=== PATIENT | female | born 1985 | race Caucasian/White ===

== ENCOUNTER 2016-09-25 21:59 | Inpatient (IN) ==
--- NOTE | 2016-09-25 22:23 | Emergency Department Note ---
Disposition Clinical Impression: Chest pain of unknown etiology, Tachyarrhythmia, Unstable angina Chest pain Qualifiers: Chest pain type: other chest pain Qualified Code(s): R07.89 - Other chest pain Disposition: Admitted As Inpatient Condition: Fair Time of Disposition: 02:56 Chest Pain HPI - General Chief Complaint: ED Chest Pain Stated Complaint: chest pain Source: patient Limitations: no limitations Vital Signs Reviewed: Yes Nursing Notes Reviewed: Yes - History of Present Illness HPI Narrative: History of present illness: Patient is a 31-year-old female who complains of acute onset of chest pain 2 hours ago sharp with pressure sided chest with radiation across the right side of chest wall. Patient states taking deep breaths makes the pain better, exertion makes the pain worse. Patient has shortness of breath after walking 30 feet. Patient denies taking anything for pain Patient states she has had periods of chest pressure before and had an echocardiogram done 6 years ago. Patient has no history of AR, thought on blood thinners. 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 Severity scale (1-10): 6 - Related Data Home Medications Medication Instructions Recorded Confirmed Norethindrone-E.estradiol-Iron [Lo 1 tab PO DAILY 03/17/16 08/11/16 Loestrin Fe 1-10 Tablet] Bifidobacterium Infantis [Align] 4 mg PO DAILY 08/11/16 08/11/16 Ginkgo Biloba [place] Extract [Ginkgo 30 mg PO DAILY 08/11/16 08/11/16 Biloba] Previous Rx's Medication Instructions Recorded OxyCODONE/APAP 10/325 [Percocet 1 each PO Q6HR PRN #26 tablet 08/11/16 10/325 MG] Allergies Allergy/AdvReac Type Severity Reaction Status Date / Time No Known Allergies Allergy Verified 09/25/16 22:11 All systems ED: reviewed and negative except as stated. Constitutional: Denies: fever, chills, weakness Eyes: Denies: vision change ENT ED: Denies: congestion Cardiovascular: Reports: chest pain, dyspnea on exertion. Denies: palpitations , syncope Respiratory: Denies: cough, dyspnea, wheezes Gastrointestinal: Denies: abdominal pain, nausea, vomiting, diarrhea, hematemesis, melena, hematochezia Genitourinary: Denies: urgency, dysuria, frequency, hematuria Musculoskeletal: Reports: back pain. 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 Absent: scleral icterus - ENT ENT exam: normal exam, normal oropharynx, mucous membranes moist - Neck Neck exam: Present: normal inspection, full ROM, trachea midline. Absent: tenderness, meningismus - Chest Chest inspection: Present: normal inspection - Respiratory Respiratory exam: Present: normal lung sounds bilaterally. Absent: respiratory distress, wheezes - Cardiovascular Cardiovascular exam: Present: normal rhythm, tachycardia - Abdominal Exam Abdominal exam: Present: soft, Non-Tender, normal bowel sounds. Absent: distention, guarding, rebound, rigidity - Extremities Exam Extremities exam: Present: normal inspection, full ROM, normal capillary refill. Absent: tenderness, pedal edema - Back Exam Back exam: Present: normal inspection, CVA tenderness (R), CVA tenderness (L) - Neurological Exam Neurological exam: Present: alert, oriented X3, CN II-XII intact - Psychiatric Psychiatric exam: Present: anxious - Skin Skin exam: Present: warm, dry Course - Reevaluation(s) Reevaluation #1: Assessment: ACS/AR, PE, aortic dissection Plan: CBC, BMP, troponin, EKG, chest x-ray. Aspirin Time: 22:33 Reevaluation #2: Patient states she is feeling a bit better. Still has chest pain 4 out of 10 same pain patterns. Patient's no longer has facial flushing. Patient is low risk for PE under Wells criteria, the patient's chest pain symptoms are concerning. Plan to do CT chest without contrast secondary to patient's elevation in creatinine and decrease in GFR to rule out PE. MrNik beta dede metoprolol for reduction of heart rate. Unsure of the cause of patient's tachycardia so chose not to administer nitroglycerin to prevent loss of preload. Time: 23:07 Reevaluation #3: Patient states that her chest is hurting again. Ordered another 0.5 of Ativan because patient is very tearful and anxious. Time: 23:49 - Consultations Consultation #1: Dr. Allison has accepted for admission 0139 hrs. tox screen ordered per request by Dr. Allison Time: 01:39 Vital Signs Temperature 98.2 F 09/25/16 22:03 Pulse Rate 115 09/25/16 22:03 Respiratory Rate 18 09/25/16 22:03 Blood Pressure 137/87 09/25/16 22:03 O2 Sat by Pulse Oximetry 97 09/25/16 22:03 Temperature 97.7 F 09/26/16 02:57 Pulse Rate 80 09/26/16 02:57 Respiratory Rate 16 09/26/16 02:57 Blood Pressure 119/67 09/26/16 02:57 O2 Sat by Pulse Oximetry 97 09/26/16 02:57 Oxygen Delivery Oxygen Delivery Room Air Chest Pain - Medical Records Medical records reviewed: Yes I reviewed the patient's medical records. - Lab Data Lab results reviewed: Yes I reviewed the patient's lab results. Lab results narrative: Short CBC 09/25/16 Range/Units 22:40 WBC 9.7 (4.3-11.1) K/mcL Hgb 15.0 (11.5-15.4) g/dL Hct 44.7 (35.3-44.9) % Plt Count 206 (140-400) K/mcL Neutrophils # 5.4 (1.6-8.9) K/mcL BMP 09/26/16 09/25/16 Range/Units 03:13 22:40 Sodium 138 140 (136-145) mEq/L Potassium 3.8 3.7 (3.5-4.5) mEq/L Chloride 108 110 H (98-109) mEq/L Carbon Dioxide 23 20 (19-29) mEq/L BUN 18 16 (7-20) mg/dL Creatinine 1.13 H 1.28 H (0.57-1.11) mg/dL Glucose 109 H 121 H (70-99) mg/dL Calcium 8.8 9.2 (8.6-10.8) mg/dL Cardiac Enzymes 09/26/16 09/25/16 Range/Units 03:13 22:40 Troponin I 0.00 0.00 (0-0.03) ng/mL Liver Function 09/26/16 Range/Units 03:13 Total Bilirubin 1.0 (0.2-1.2) mg/dL AST 50 H (5-34) Units/L ALT 32 (0-55) Units/L Alkaline Phosphatase 56 (38-126) Units/L Albumin 3.2 L (3.5-5.0) g/dL Result diagrams: 09/25/16 22:40 09/26/16 03:13 Lab Results 09/25/16 09/25/16 09/25/16 Range/Units 22:40 22:40 22:40 WBC 9.7 (4.3-11.1) K/mcL RBC 5.08 H (3.82-4.97) M/mcL Hgb 15.0 (11.5-15.4) g/dL Hct 44.7 (35.3-44.9) % MCV 88.0 (83.0-100.0) fL MCH 29.5 (28.0-33.3) pg MCHC 33.6 (31.6-35.5) g/dL RDW 14.2 (11.5-14.5) % Plt Count 206 (140-400) K/mcL MPV 11.0 (9.4-12.4) fL Immature Gran % 0.4 (0-4) % Seg Neutrophils % 55.4 % Lymphocytes % 36.5 % Monocytes % 6.5 % Eosinophils % 0.8 % Basophils % 0.4 % Neutrophils # 5.4 (1.6-8.9) K/mcL Lymphocytes # 3.5 (0.6-4.6) K/mcL Monocytes # 0.6 (0.0-1.3) K/mcL Eosinophils # 0.1 (0.0-0.6) K/mcL Basophils # 0.0 (0.0-0.2) K/mcL D-Dimer (0-500) ng/mLFEU Sodium 140 (136-145) mEq/L Potassium 3.7 (3.5-4.5) mEq/L Chloride 110 H (98-109) mEq/L Carbon Dioxide 20 (19-29) mEq/L BUN 16 (7-20) mg/dL Creatinine 1.28 H (0.57-1.11) mg/dL Est GFR ( Amer) 59 L (> 60) Est GFR (Non-Af Amer) 49 L (> 60) BUN/Creatinine Ratio 13 (6-26) Glucose 121 H (70-99) mg/dL Calculated Osmolality 292 (280-300) Calcium 9.2 (8.6-10.8) mg/dL Troponin I 0.00 (0-0.03) ng/mL 09/25/16 Range/Units 22:40 WBC (4.3-11.1) K/mcL RBC (3.82-4.97) M/mcL Hgb (11.5-15.4) g/dL Hct (35.3-44.9) % MCV (83.0-100.0) fL MCH (28.0-33.3) pg MCHC (31.6-35.5) g/dL RDW (11.5-14.5) % Plt Count (140-400) K/mcL MPV (9.4-12.4) fL Immature Gran % (0-4) % Seg Neutrophils % % Lymphocytes % % Monocytes % % Eosinophils % % Basophils % % Neutrophils # (1.6-8.9) K/mcL Lymphocytes # (0.6-4.6) K/mcL Monocytes # (0.0-1.3) K/mcL Eosinophils # (0.0-0.6) K/mcL Basophils # (0.0-0.2) K/mcL D-Dimer 273 (0-500) ng/mLFEU Sodium (136-145) mEq/L Potassium (3.5-4.5) mEq/L Chloride (98-109) mEq/L Carbon Dioxide (19-29) mEq/L BUN (7-20) mg/dL Creatinine (0.57-1.11) mg/dL Est GFR ( Amer) (> 60) Est GFR (Non-Af Amer) (> 60) BUN/Creatinine Ratio (6-26) Glucose (70-99) mg/dL Calculated Osmolality (280-300) Calcium (8.6-10.8) mg/dL Troponin I (0-0.03) ng/mL - Radiology Data Radiology results reviewed: Yes I reviewed the patient's radiology results. Chest X-Ray 09/25/16 22:30 IMPRESSION: No acute process. D/ / Devon Cabral MD / Devon Cabral MD Interpreting Provider: Devon Cabral MD Chest CT 09/26/16 23:51 IMPRESSION: No acute process identified. D/ / Stephen Mcfarland MD / Stephen Mcfarland MD Interpreting Provider: Stephen Mcfarland MD - EKG Data EKG attestation: Yes I reviewed and interpreted this EKG. EKG results narrative: EKG taken at 09/25/2016 at 2207 hrs. shows a sinus tachycardia with occasional premature beat and rate of 106 bpm with no acute ST elevations or depressions in leads and QRS widening or QT prolongation no S1 QT T3. Previous EKG taken shows a sinus tachycardia at a rate of 108 bpm with occasional PACs and no acute ST elevations or depressions and a leads Heart Score - Score History: Slightly Suspicious EKG: Non Specific repolarisation Disturbance Age: Less than 45 Risk Factors: No risk factors known Troponin: Less than normal limit HEART Score Total: 1 Critical Care Time Critical Care Time: Yes Total Critical Care Time: 40 Attestation: Critical care performed: Time is exclusive of separately billable procedures. Time includes: direct patient care, patient reassessment, coordination of patient care, interpretation of data (laboratory data, radiology data, and respiratory data), review of patient's medical records, medical consultation and documentation of patient care. Procedures included in critical care time: Procedures excluded from critical care time: Attestation Statement - Attestation Attestation: I, Venkata Luna MD, personally performed a history and physical exam of the patient and discussed their management with the resident. I reviewed the resident's note and agree with the documented findings, medical decision making , and plan of care. 31-year-old female presents to the emergency department with a complaint of mid lower chest pain which started about 2 hours prior to arrival. The pain is also associated with palpitations. Patient states that she has had the palpitations in the past but has never had chest pain with it. Some shortness of breath. No diaphoresis. Some nausea but no vomiting. Here in the emergency department on the monitor the patient is in a sinus rhythm and sinus tachycardia with frequent intermittent runs of very irregular and tachycardic rhythm which appears to be atrial fibrillation. On examination patient is a well-developed obese female in no acute distress. She is alert and oriented 3. There is no cyanosis or diaphoresis. She does appear anxious. Chest is nontender to palpation. Heart is irregularly irregular and tachycardic. Abdomen is soft and nontender with normal bowel sounds. Labs reviewed. Chest x-ray negative. EKG shows sinus tachycardia with frequent PACs versus intermittent atrial fibrillation. CT of the chest without contrast was also obtained and showed no acute abnormality. The hospitalist, Dr. Allison, was consulted and accepted admission of the patient.
[2016-09-25] MEDS ORDERED: Nitroglycerin 0.4 MG TAB.SUBL SL PRN (22:32)
[2016-09-25] MEDS ORDERED: Aspirin 81 MG TAB.CHEW PO ONE (22:32)
[2016-09-25] MEDS ORDERED: *HR* LORazepam 2 MG/ML VIAL IVP ONE (22:33)
[2016-09-25 22:51] LABS: Basophils % 0.4 %; Eosinophils # 0.1 K/mcL (0.0-0.6); Eosinophils % 0.8 %; Hematocrit 44.7 % (35.3-44.9); Immature Granulocytes % 0.4 % (0-4); Lymphocytes # 3.5 K/mcL (0.6-4.6); Lymphocytes % 36.5 %; Mean Corpuscular HGB Conc 33.6 g/dL (31.6-35.5); Mean Corpuscular Hemoglobin 29.5 pg (28.0-33.3); Monocytes # 0.6 K/mcL (0.0-1.3); Monocytes % 6.5 %; Neutrophils # 5.4 K/mcL (1.6-8.9); Platelet Count 206 K/mcL (140-400); Red Blood Count 5.08 M/mcL (3.82-4.97); Red Cell Distribution Width 14.2 % (11.5-14.5); Segmented Neutrophils % 55.4 %
[2016-09-25 23:06] LABS: Calcium 9.2 mg/dL (8.6-10.8); Potassium 3.7 mEq/L (3.5-4.5)
[2016-09-25] MEDS ORDERED: *HR* Metoprolol 5 MG/5 ML VIAL IVP ONE (23:54)
[2016-09-25] MEDS ORDERED: *HR* HYDROmorphone 2 MG/ML SYRINGE IV ONE (23:54)
[2016-09-26] MEDS ORDERED: Ondansetron 4 MG/2 ML VIAL IV ONE (00:39)
[2016-09-26] MEDS ORDERED: *HR* LORazepam 2 MG/ML VIAL IVP ONE (01:19)
[2016-09-26] MEDS ORDERED: Pantoprazole 40 MG VIAL IVP STA (02:05)
[2016-09-26] MEDS ORDERED: *HR* Promethazine 25 MG/ML VIAL IVP PRN (02:05)
[2016-09-26] MEDS ORDERED: Naloxone 0.4 MG/ML INJ IVP PRN (02:05)
[2016-09-26] MEDS ORDERED: *HR* OxyCODONE Immed Rel 5 MG TABLET PO PRN (02:05)
[2016-09-26] MEDS ORDERED: *HR* Metoprolol 5 MG/5 ML VIAL IVP PRN (02:05)
[2016-09-26] MEDS ORDERED: Acetaminophen 325 MG TABLET PO PRN (02:05)
[2016-09-26] MEDS ORDERED: Albuterol 2.5 MG/3 ML NEBULIZER IH PRN (02:05)
[2016-09-26] MEDS ORDERED: Nitroglycerin 0.4 MG TAB.SUBL SL PRN (02:05)
[2016-09-26] MEDS ORDERED: Mag Hydrox/Al Hydrox/Simeth 30 ML UDC PO PRN (02:05)
[2016-09-26] MEDS ORDERED: 0.9 % Sodium Chloride 500 ML ONE (02:07)
[2016-09-26] MEDS ORDERED: 0.9 % Sodium Chloride 1,000 ML IVC SCH (02:15)
--- NOTE | 2016-09-26 02:25 | Internal Med History&Physical ---
Date of Encounter: 09/26/16 Time of Encounter: 02:00 Assessment and Plan (1) Chest pain, rule out acute myocardial infarction Current visit: Yes Status: Acute . (2) Chest pain with low risk of acute coronary syndrome Current visit: Yes Status: Acute . (3) Acute chest wall pain Current visit: Yes Status: Acute . (4) Morbid obesity with BMI of 40.0-44.9, adult Current visit: Yes Status: Chronic . (5) Nicotine dependence with nicotine-induced disorder Current visit: Yes Status: Chronic . Qualifiers: Nicotine product type: cigarettes Qualified Code(s): F17.219 - Nicotine dependence, cigarettes, with unspecified nicotine-induced disorders (6) Nephrocalcinosis Current visit: Yes Status: Chronic . (7) CKD (chronic kidney disease) stage 3, GFR 30-59 ml/min Current visit: Yes Status: Chronic . (8) PCOS (polycystic ovarian syndrome) Current visit: Yes Status: Chronic . (9) Medullary cystic kidney disease Current visit: Yes Status: Chronic . (10) Anxiety as acute reaction to gross stress Current visit: Yes Status: Acute . (11) Anxiety associated with depression Current visit: Yes Status: Chronic . (12) Costochondritis Current visit: Yes Status: Acute . (13) GERD (gastroesophageal reflux disease) Current visit: Yes Status: Acute . Qualifiers: Esophagitis presence: esophagitis presence not specified Qualified Code(s) : K21.9 - Gastro-esophageal reflux disease without esophagitis (14) Tachyarrhythmia Current visit: Yes Status: Acute . Internal Medicine - H&P: HPI Chief complaint: Chest pain. Admitted From: Emergency Dept Plans for Post Hospital Care: Home History of present illness: Ms. Caballero is a 31 year old female with history significant for medullary sponge kidney/nephrocalcinosis/RTA/CKD III, nephrolithiasis, hypertension, asthma, DDD/DJD lumbar spine/chr MSK pain, polycystic ovarian syndrome, depression/anxiety, morbid obesity, nicotine dependency. The patient was admitted to [facility] via the emergency department which she presents with complaints of acute onset of left-sided chest pain with difficulty breathing again approximately 2 hours prior to presentation. Described this pain as sharp and pressure-like. This was rated at 6/10 severity. Radiation across the right side of chest wall was noted. Stated that taking a deep breath seemed to lessen the pain. Exertion seems to increase the pain. Dyspnea with exertion was noted after walking just 30 feet. She denies any fevers chills sweats upper or lower respiratory complaints of cough and congestion audible wheezing. Denied abdominal pain and flank pain. Acknowledged chronic back pain. Acknowledged increased anxiety and worry. Tearful while in the emergency department. Anxious. Findings in the ED: Vital signs stable. Resting tachycardia at 115. Regular rate and rhythm. WBC 9.7. Hemoglobin 15 platelet count 206,000. Differential normal. Metabolic panel normal except chloride 110. Creatinine 1.28. GFR 49. Glucose 121. Osmolality 292. Troponin 0.00. CT of the chest without contrast demonstrated no acute cardiopulmonary process. Densely calcified mediastinal lymph nodes consistent with healed granulomatous disease. Airways patent. No acute airspace disease. Evidence of medullary nephrocalcinosis noted in the upper abdomen with cyst in the upper pole of the left kidney and no acute findings visualized. Soft tissues showed no acute findings. Chest x-ray demonstrated no acute or active cardiopulmonary process. EKG showed sinus tachycardia at 106 bpm. Occasional premature atrial contraction. No acute ischemic changes. Preliminary findings suggest typical and mostly atypical features for ACS/UA. Patient presents at low risk for major acute coronary event. Most significant risk factors include hypertension, obesity, tobacco use disorder. Family history is negative for atherosclerotic cardiovascular disease. The patient does present a significant presentation of anxiety and underlying depression. She acknowledges some increased stressors in the family setting. Examination does reveal reproducibility of chest wall pain and history does support frequent clearing of 30+ pound child on that left side. The tachycardia however is of special interest that often times is associated with general sensation of flushing and lightheadedness and near syncope. She has experienced tachycardia going back several years but more frequent/significant within the last year. This is never been formally evaluated. As she may have an underlying history of glucose intolerance or yet to be defined diabetes mellitus the tachycardia may relate to POT syndrome (postural orthostatic tachycardia syndrome). ED transition to the inpatient status on a IV Cardizem drip initiated for rate control. She also endorses the possibility of obstructive sleep apnea and which show numerous kidney indicators are positive. She also has gastroesophageal reflux with symptoms of esophagitis experienced lately. These issues have been reviewed or addressed in the past. Workup and treatments will proceed comprehensively. The patient was visited and interviewed and examined. Cumulative laboratory and radiographic database was reviewed and considered. Consultative opinions will be sought as clinical circumstances justify. Initial consultative opinion has been requested of cardiology. Plan of care has been discussed. Questions addressed. Hospital course will be dependent upon clinical findings, treatment response and potential consultative interventions. Given the patient's presenting concerns, past medical history, clinical findings and symptoms, she is admitted at this time to undergo evaluation and disposition. Orders were written as per the computerized physician cancer genetics assistant. Condition is serious. Prognosis is guarded. CODE STATUS is full. Past Med Surg Social Fam HX - Past Medical History Source: old records reviewed Medical history: arthritis, asthma, cardiomyopathy (2011 echocardiogram demonstrated mild concentric LVH with normal systolic function. LVEF 50-55%.), GERD, GI bleed, hypertension, kidney stones, renal disease (Medullary sponge/ cystic kidney disease. CKD III/nephrocalcinosis.), other (Restless leg syndrome. Irritable bowel syndrome.) Psychiatric history: anxiety, depression, other - Past Surgical History Surgical History: ( 2. D&C.), cholecystectomy, ureteral stent (Multiple ureteral stents. Nephrostomy tube placement.), other ( Colonoscopy.), bariatric surgery - Social History Smoking Status: Current every day smoker Packs per day: 1ppd x10yrs Smokeless Tobacco Status: No Alcohol use: occasionally Drug use: marijuana, other Occupational status: unemployed Current living situation: Home, With Family Activity Level: Independent ambulation, Mostly sedentary Recent Out of Country Travel Within the Last 8 Weeks: No Exposure or Possible Exposure to Illness During Travel: No - Family History Mother Living Status: Still Living Hx Family Cardiac Disorders: Yes (Hypertension) Hx Family Genitourinary Disorders: Yes (Nephrolithiasis) Hx Family Endocrine Disorder: Yes (Diabetes) Hx Family Neuromuscular Disorders: Yes (Multiple sclerosis) Father Living Status: Still Living Hx Family Cardiac Disorders: Yes (Hypertension) Hx Family Endocrine Disorder: Yes (Thyroid disorder; diabetes) Internal Medicine - H&P: Meds Norethindrone-E.estradiol-Iron [Lo Loestrin Fe 1-10 Tablet] 1 tab PO DAILY 03/17 [History] Bifidobacterium Infantis [Align] 4 mg PO DAILY 08/11/16 [History] Ginkgo Biloba [place] Extract [Ginkgo Biloba] 30 mg PO DAILY 02/28/17 [History] OxyCODONE/APAP 10/325 [Percocet 10/325 MG] 1 each PO Q6HR PRN #26 tablet [Rx] Allergies No Known Allergies Allergy (Verified 09/25/16 22:11) All Systems PM: A 10-system review of systems was performed and is negative for pertinent findings except as documented above in the HPI. - Constitutional Constitutional: as per HPI, excessive sweating, fatigue, malaise, other, no chills, no fever(s), no night sweats - EENT Eyes: as per HPI, no change in vision, no discharge, no pain, no photophobia Ears: as per HPI, no ear discharge, no ear pain, no tinnitus Nose, mouth and throat: as per HPI, no dysphagia, no nasal discharge, no neck pain, no sore throat - Cardiovascular Cardiovascular ROS IM: chest pain, dyspnea, lightheadedness, palpitations, other , no diaphoresis, no edema, no orthopnea, no syncope - Respiratory Respiratory: as per HPI, snoring, other, no cough, no dyspnea, no wheezing, no excessive phlegm production - Gastrointestinal Gastrointestinal: as per HPI, dyspepsia, heartburn, other, no abdominal pain, no coffee ground emesis, no diarrhea, no dysphagia, no hematemesis, no hematochezia, no melena, no nausea, no vomiting - Genitourinary Genitourinary: as per HPI, no change in urinary stream, no dysuria, no flank pain, no hematuria Menstruation: as per HPI, other - Musculoskeletal Musculoskeletal ROS IM: as per HPI, muscle cramps, myalgias, neck pain, stiffness, other, no numbness, no tingling - Integumentary Integumentary IM: as per HPI, no rash, no unusual bruising - Neurological Neurological ROS: as per HPI, headache(s), restless legs, other, no confusion, no convulsions, no focal weakness, no numbness, no tingling, no tremor(s) - Psychiatric Psychiatric: as per HPI, abnormal sleep pattern, anxiety, depression, difficulty concentrating, other - Endocrine Endocrine IM: as per HPI, fatigue, other - Hematologic/Lymphatic Hematologic/Lymphatic: as per HPI, no easy bruising - Allergic/Immunologic Allergic/Immunologic: as per HPI - Constitutional Vitals: Temp Pulse Resp BP Pulse Ox 98.2 F 112 20 103/76 98 09/25/16 22:03 09/26/16 00:50 09/26/16 00:50 09/26/16 00:50 09/26/16 00:50 Vital Signs Temp Pulse Resp BP Pulse Ox 09/26/16 00:50 112 20 103/76 98 09/25/16 23:40 105 18 121/73 98 09/25/16 22:03 98.2 F 115 18 137/87 97 Intake and Output 09/25/16 09/25/16 09/26/16 15:59 23:59 07:59 Other: Weight 115.666 kg General appearance: Present: cooperative, mild distress, A&O X 3, morbidly obese , pleasant, answers questions appropriately - Head Head exam: Present: atraumatic, normal inspection, normocephalic - Eye Eye exam: Present: EOMI, PERRL, conjuntiva pink, sclera anicteric Pupils: Present: normal accommodation, PERRL - ENT ENT exam: Present: mucous membranes moist, normal external ear exam, normal oropharynx - Neck Neck exam general surgery: Present: full ROM, tenderness, supple, trachea midline. Absent: lymphadenopathy, nuchal rigidity - Respiratory Respiratory exam: Present: chest wall tenderness, decreased breath sounds, CTAB. Absent: accessory muscle use, rales, rhonchi, stridor, wheezes - Cardiovascular Cardiovascular exam: Present: distant heart sounds, irregular rhythm (Frequent PACs.), RRR, +S1, +S2, tachycardia. Absent: diastolic murmur, gallop, rubs, systolic murmur - GI/Abdominal GI/Abdominal exam: Present: normal bowel sounds, soft, no peritoneal signs. Absent: distended, tenderness - Extremities Exam Extremities exam: Present: full ROM, normal capillary refill, warm, radial pulses palpable and symetrical. Absent: calf tenderness, cyanotic, pedal edema - Neurological Exam Neurological exam: Present: alert, CN II-XII intact, oriented X3, no focal deficits, strengths equal and symetr throughout. Absent: pronater drift, facial droop, speech deficit - Psychiatric Psychiatric exam: Present: anxious, depressed - Skin Skin exam: Present: dry, intact, warm. Absent: rash, urticaria, vesicles Internal Med - H&P Results - Labs CBC & Chem 7: 09/25/16 22:40 09/26/16 03:13 Labs: Short CBC 09/25/16 Range/Units 22:40 WBC 9.7 (4.3-11.1) K/mcL Hgb 15.0 (11.5-15.4) g/dL Hct 44.7 (35.3-44.9) % Plt Count 206 (140-400) K/mcL Neutrophils # 5.4 (1.6-8.9) K/mcL BMP 09/25/16 Range/Units 22:40 Sodium 140 (136-145) mEq/L Potassium 3.7 (3.5-4.5) mEq/L Chloride 110 H (98-109) mEq/L Carbon Dioxide 20 (19-29) mEq/L BUN 16 (7-20) mg/dL Creatinine 1.28 H (0.57-1.11) mg/dL Glucose 121 H (70-99) mg/dL Calcium 9.2 (8.6-10.8) mg/dL Cardiac Enzymes 09/25/16 Range/Units 22:40 Troponin I 0.00 (0-0.03) ng/mL Abnormal lab results RBC 5.08 M/mcL (3.82-4.97) H 09/25/16 22:40 Chloride 110 mEq/L (98-109) H 09/25/16 22:40 Creatinine 1.28 mg/dL (0.57-1.11) H 09/25/16 22:40 Est GFR ( Amer) 59 (> 60) L 09/25/16 22:40 Est GFR (Non-Af Amer) 49 (> 60) L 09/25/16 22:40 Glucose 121 mg/dL (70-99) H 09/25/16 22:40 Laboratory Results WBC 9.7 K/mcL (4.3-11.1) 09/25/16 22:40 RBC 5.08 M/mcL (3.82-4.97) H 09/25/16 22:40 Hgb 15.0 g/dL (11.5-15.4) 09/25/16 22:40 Hct 44.7 % (35.3-44.9) 09/25/16 22:40 MCV 88.0 fL (83.0-100.0) 09/25/16 22:40 MCH 29.5 pg (28.0-33.3) 09/25/16 22:40 MCHC 33.6 g/dL (31.6-35.5) 09/25/16 22:40 RDW 14.2 % (11.5-14.5) 09/25/16 22:40 Plt Count 206 K/mcL (140-400) 09/25/16 22:40 MPV 11.0 fL (9.4-12.4) 09/25/16 22:40 Immature Gran % 0.4 % (0-4) 09/25/16 22:40 Seg Neutrophils % 55.4 % 09/25/16 22:40 Lymphocytes % 36.5 % 09/25/16 22:40 Monocytes % 6.5 % 09/25/16 22:40 Eosinophils % 0.8 % 09/25/16:40 Basophils % 0.4 % 09/25/16 22:40 Neutrophils # 5.4 K/mcL (1.6-8.9) 09/25/16 22:40 Lymphocytes # 3.5 K/mcL (0.6-4.6) 09/25/16 22:40 Monocytes # 0.6 K/mcL (0.0-1.3) 09/25/16 22:40 Eosinophils # 0.1 K/mcL (0.0-0.6) 09/25/16 22:40 Basophils # 0.0 K/mcL (0.0-0.2) 09/25/16 22:40 D-Dimer 273 ng/mLFEU (0-500) 09/25/16 22:40 Sodium 140 mEq/L (136-145) 09/25/16 22:40 Potassium 3.7 mEq/L (3.5-4.5) 09/25/16 22:40 Chloride 110 mEq/L (98-109) H 09/25/16 22:40 Carbon Dioxide 20 mEq/L (19-29) 09/25/16 22:40 BUN 16 mg/dL (7-20) 09/25/16 22:40 Creatinine 1.28 mg/dL (0.57-1.11) H 09/25/16 22:40 Est GFR ( Amer) 59 (> 60) L 09/25/16 22:40 Est GFR (Non-Af Amer) 49 (> 60) L 09/25/16 22:40 BUN/Creatinine Ratio 13 (6-26) 09/25/16 22:40 Glucose 121 mg/dL (70-99) H 09/25/16 22:40 Calculated Osmolality 292 (280-300) 09/25/16 22:40 Calcium 9.2 mg/dL (8.6-10.8) 09/25/16 22:40 Troponin I 0.00 ng/mL (0-0.03) 09/25/16 22:40 Impressions Chest X-Ray 09/25/16 22:30 IMPRESSION: No acute process. D/ / Devon Cabral MD / Devon Cabral MD Interpreting Provider: Devon Cabral MD Chest CT 09/26/16 23:51 IMPRESSION: No acute process identified. D/ / Stephen Mcfarland MD / Stephen Mcfarlnad MD Interpreting Provider: Stephen Mcfarland MD - Impressions ITS Impressions Chest CT 09/26/16 23:51 IMPRESSION: No acute process identified. D/ / Stephen Mcfarland MD / Stephen Mcfarland MD Interpreting Provider: Stephen Mcfarland MD
[2016-09-26 03:35] LABS: Prothrombin Time 10.8 Seconds (9.4-12.1)
[2016-09-26 03:37] LABS: Activated Partial Thrombo Time 33.5 Seconds (26.0-36.0); Hemoglobin A1C 5.3 %
[2016-09-26 03:43] LABS: Alanine Aminotransferase 32 Units/L (0-55); Albumin 3.2 g/dL (3.5-5.0); Alkaline Phosphatase 56 Units/L (38-126); Aspartate Amino Transferase 50 Units/L (5-34); BUN/Creatinine Ratio 16 (6-26); Blood Urea Nitrogen 18 mg/dL (7-20); Calcium 8.8 mg/dL (8.6-10.8); Carbon Dioxide 23 mEq/L (19-29); Chloride 108 mEq/L (98-109); Chol/HDL Ratio 5.6 (0-4.9); Cholesterol 146 mg/dL (< 200); Globulin 3.1 g/dL (2.4-3.5); Glucose 109 mg/dL (70-99); HDL Cholesterol 26 mg/dL (40-59); LDL Cholesterol,Calculated 52 mg/dL (0-99); Magnesium 1.6 mg/dL (1.6-2.6); Osmolality,Calculated 288 (280-300); Phosphorous 3.4 mg/dL (2.3-4.7); Potassium 3.8 mEq/L (3.5-4.5); Sodium 138 mEq/L (136-145); Total Protein 6.3 g/dL (6.0-8.3); Triglycerides 338 mg/dL (< 150); eGFR For African Americans > 60 (> 60); eGFR For Non-African Americans 56 (> 60)
[2016-09-26 03:53] LABS: Ionized Calcium 1.21 mmol/L (1.15-1.35)
[2016-09-26] MEDS ORDERED: *HR* LORazepam 0.5 MG TABLET PO PRN (04:03)
[2016-09-26 04:04] LABS: Thyroid Stimulating Hormone 2.325 mcIU/mL (0.350-4.840)
[2016-09-26] MEDS ORDERED: Calcium Gluconate 1,000 MG in D5% in Water 100 ML IVPB ONE (04:05)
[2016-09-26] MEDS ORDERED: 0.9 % Sodium Chloride 500 ML IVC ONE (04:05)
[2016-09-26 04:10] LABS: C-Reactive Protein 5 mg/L (Less than 5)
[2016-09-26] MEDS: *HR* Morphine 2 MG/ML SYRINGE IVP PRN ×2 (04:43→22:13)
[2016-09-26] MEDS: Regadenoson 0.4 MG/5 ML SYRINGE IVP ONE (08:00)
[2016-09-26] MEDS: Nicotine 21 MG PATCH.TD24 TD SCH (10:32)
[2016-09-26] MEDS: Famotidine 20 MG TABLET PO SCH ×2 (10:33→20:50)
[2016-09-26] MEDS: Aspirin 81 MG TAB.CHEW PO SCH (10:33)
[2016-09-26] MEDS: Sucralfate 1 GM TABLET PO SCH ×2 (10:33→15:46)
--- NOTE | 2016-09-26 12:24 | ECHO - Doppler Report ---
Echocardiogram Name: Flor Caballero Date of Study: 09/26/2016 Date: 1985 Ht: 65.0 in Medical Record#: [id number] Age: 31 Wt: 255.0 lb Gender: Female BSA: 2.19 Order #: [id number] Location: [facility] Room #: 2NE31 Reading Physician: Xander Linder MD, [facility] Clip On Sunglasses Inspector: MORGAN CardenasT, [facility] Ordering Physician: Bon Allison MD Primary Physician: Bethany May DO Indications: Chest pain, ACS Impressions: Normal LV systolic function, LVEF 55-60%. Normal left ventricular diastolic function. Normal right ventricular size and function. No significant valvular dysfunction. Left Ventricular Wall Motion: Rest Echo Findings All wall segments showed normal motion. Findings: Study Quality * Technically adequate exam. ECG Findings * Normal sinus rhythm. Left Ventricle * Normal LV systolic function, LVEF 55-60%. * Normal LV chamber size and wall thickness. * Normal left ventricular diastolic function. Right Ventricle * Normal right ventricular size and function. Left Atrium * Normal left atrial size. Right Atrium * Normal right atrial size. Aorta * Normally sized aortic root. Pericardium * There is no pericardial effusion present. IVC * Normal IVC dimensions and inspiratory collapse. Aortic Valve * Aortic valve not well visualized. * No aortic stenosis. * No aortic regurgitation. Mitral Valve * Normal mitral valve structure. * No mitral stenosis. * Trace mitral regurgitation. Tricuspid Valve * Normal tricuspid valve structure. * No tricuspid stenosis. * Trace tricuspid regurgitation. * Unable to estimate RVSP due to lack of TR jet. Pulmonic Valve * Pulmonic valve not well visualized. * No pulmonic stenosis. * No pulmonic regurgitation. History History of Smoking Years 12 Packs 1 Family History of CAD 10/16/2011 a Previous Echo was performed. Measurements: BP: 106/ 68 2D Normal Values RVIDd: 3.68 cm IVSd: 1.22 cm 0.6 - 1.0 cm LVIDd: 4.98 cm 3.7 - 5.6 cm LVPWd: 1.25 cm 0.6 - 1.1 cm LVIDs: 3.37 cm 1.5 - 3.6 cm AO: 3.30 cm < 4.0 cm %FS: 32.30 cm >25 % LA volume: 60.7 Mitral Valve Peak E:.77 m/sec Peak A:.68 m/sec E/A Ratio:1.1 Updated by Xander Linder MD, [facility] on 09/26/2016 12:19:58 PM electronically signed on 09/26/2016 12:20:28 PM with status of Final Wall Motion Borja: 1=Normal, 2=Hypokinesis, 3=Akinesis, 4=Dyskinesis, 5=Aneurysmal, 6=Hyperkinetic, X=Not Visualized (Blank)=Missing
--- NOTE | 2016-09-26 14:21 | Internal Med Progress Note ---
Date of Encounter: 09/26/16 Time of Encounter: 10:00 - Assessment and plan (1) DVT prophylaxis Current Visit: Yes Status: Acute Assessment and plan: Lovenox subcutaneously (2) Chest pain Current Visit: Yes Status: Acute Assessment and plan: Etiology is undetermined. - Chest x-ray negative - D-dimer negative - Echo unremarkable - 3 sets of troponin negative. - Patient had stress test, result is pending - Patient is a morbid obesity, high risk for ACS. Continue aspirin and beta dede. - Patient has anxiety, continue treatment for anxiety. Qualifiers: Chest pain type: other chest pain Qualified Code(s): R07.89 - Other chest pain; R07.8 - Other chest pain (3) Morbid obesity with BMI of 40.0-44.9, adult Current Visit: Yes Status: Chronic Assessment and plan: Neither lifestyle modification or bariatric surgery (4) CKD (chronic kidney disease) stage 3, GFR 30-59 ml/min Current Visit: Yes Status: Chronic Assessment and plan: Stable creatinine level (5) Tachyarrhythmia Current Visit: Yes Status: Acute (6) Anxiety associated with depression Current Visit: Yes Status: Chronic Assessment and plan: Continue home medications - Time Spent With Patient 25 - 35 minutes - Subjective Interval history: Patient is a 31-year-old female admitted for chest pain and palpitation. Her past medical history is significant for anxiety and depression. Patient was seen and examined. She is awake alert, oriented 3. Denies chest pain or shortness of breath when I saw her. Vital signs stable. 3 sets of troponin negative. D-dimer negative. Chest x-ray unremarkable. EKG showed sinus tachycardia with multiple APC. TSH negative. Patient had stress test today, report is pending. - Constitutional Vitals: Temp Pulse Resp BP Pulse Ox 97.7 F 77 14 113/73 94 09/26/16 11:01 09/26/16 11:01 09/26/16 11:01 09/26/16 11:01 09/26/16 11:01 General appearance: Present: cooperative, mild distress, A&O X 3, morbidly obese , pleasant, answers questions appropriately - Head Head exam: Present: atraumatic, normocephalic - Eye Eye exam: Present: PERRL, conjuntiva pink, sclera anicteric Pupils: Present: PERRL - Neck Neck exam general surgery: Present: supple, trachea midline. Absent: lymphadenopathy - Respiratory Respiratory exam: Present: CTAB. Absent: accessory muscle use, rales, rhonchi, wheezes - Cardiovascular Cardiovascular exam: Present: RRR, +S1, +S2. Absent: diastolic murmur, gallop, rubs, systolic murmur - GI/Abdominal GI/Abdominal exam: Present: normal bowel sounds, soft, no peritoneal signs. Absent: distended, tenderness - Extremities Exam Extremities exam: Present: warm, radial pulses palpable and symetrical. Absent : calf tenderness, cyanotic, pedal edema - Neurological Exam Neurological exam: Present: CN II-XII intact, oriented X3, no focal deficits. Absent: pronater drift, facial droop, speech deficit - Skin Skin exam: Present: dry, intact Internal Medicine: Result - Labs CBC & Chem 7: 09/25/16 22:40 09/26/16 03:13 Labs: BMP 09/26/16 03:13 Sodium 138 Potassium 3.8 Chloride 108 Carbon Dioxide 23 BUN 18 Creatinine 1.13 H Glucose 109 H Calcium 8.8 Cardiac Enzymes 09/26/16 Range/Units 03:13 Troponin I 0.00 (0-0.03) ng/mL Liver Function 09/26/16 Range/Units 03:13 Total Bilirubin 1.0 (0.2-1.2) mg/dL AST 50 H (5-34) Units/L ALT 32 (0-55) Units/L Alkaline Phosphatase 56 (38-126) Units/L Albumin 3.2 L (3.5-5.0) g/dL - ABG Interpretation ABG results: PT/INR, D-dimer PT 10.8 Seconds (9.4-12.1) 09/26/16 03:13 D-Dimer 273 ng/mLFEU (0-500) 09/25/16 22:40 - Impressions Impressions Chest CT 09/26/16 23:51 IMPRESSION: No acute process identified. D/ / Stephen Mcfarland MD / Stephen Mcfarland MD Interpreting Provider: Stephen Mcfarland MD Consult Discharge Plan - Plan Referrals: Unassigned,Provider [Non-Partnered Physician] -
[2016-09-26 14:49] LABS: Amphetamine Screen,Urine Negative ng/mL (Cutoff=1000); Barbiturate Screen,Urine Negative ng/mL (Cutoff=200); Benzodiazepines Screen,Urine Negative ng/mL (Cutoff=200); Cannabinoid Screen,Urine Positive ng/mL (Cutoff = 50); Cocaine Screen,Urine Negative ng/mL (Cutoff= 300); Opiate Screen,Urine Positive ng/mL (Cutoff=300); Phencyclidine Screen,Urine Negative ng/mL (Cutoff=25)
[2016-09-26] MEDS ORDERED: Magnesium Sulfate 1 GM in D5% in Water 100 ML IVPB ONE (14:53)
[2016-09-26] MEDS: FLUoxetine 20 MG CAPSULE PO SCH (15:45)
[2016-09-27 05:24] LABS: Basophils # 0.1 K/mcL (0.0-0.2); Basophils % 0.7 %; Eosinophils # 0.2 K/mcL (0.0-0.6); Eosinophils % 2.6 %; Hematocrit 41.7 % (35.3-44.9); Hemoglobin 13.8 g/dL (11.5-15.4); Immature Granulocytes % 0.3 % (0-4); Lymphocytes # 2.9 K/mcL (0.6-4.6); Lymphocytes % 41.4 %; Mean Corpuscular HGB Conc 33.1 g/dL (31.6-35.5); Mean Corpuscular Hemoglobin 30.3 pg (28.0-33.3); Mean Corpuscular Volume 91.6 fL (83.0-100.0); Mean Platelet Volume 11.7 fL (9.4-12.4); Monocytes # 0.5 K/mcL (0.0-1.3); Monocytes % 7.4 %; Neutrophils # 3.3 K/mcL (1.6-8.9); Platelet Count 189 K/mcL (140-400); Red Blood Count 4.55 M/mcL (3.82-4.97); Red Cell Distribution Width 14.4 % (11.5-14.5); Segmented Neutrophils % 47.6 %
[2016-09-27 05:33] LABS: BUN/Creatinine Ratio 17 (6-26); Blood Urea Nitrogen 17 mg/dL (7-20); Calcium 8.6 mg/dL (8.6-10.8); Carbon Dioxide 27 mEq/L (19-29); Chloride 108 mEq/L (98-109); Glucose 107 mg/dL (70-99); Magnesium 1.8 mg/dL (1.6-2.6); Osmolality,Calculated 292 (280-300); Potassium 4.1 mEq/L (3.5-4.5); Sodium 140 mEq/L (136-145); eGFR For African Americans > 60 (> 60); eGFR For Non-African Americans > 60 (> 60)
[2016-09-27] MEDS ORDERED: *HR* Heparin 5,000 UNIT/ML VIAL SQ SCH (06:00)
[2016-09-27] MEDS ORDERED: *HR* Enoxaparin 40 MG/0.4 ML SYRINGE SQ SCH (06:00)
[2016-09-27 07:52] VITALS: BP 121/82
[2016-09-27] MEDS: Aspirin 81 MG TAB.CHEW PO SCH (10:29)
[2016-09-27] MEDS: Famotidine 20 MG TABLET PO SCH (10:29)
[2016-09-27] MEDS: Sucralfate 1 GM TABLET PO SCH (10:29)
[2016-09-27] MEDS: FLUoxetine 20 MG CAPSULE PO SCH (10:29)
[2016-09-27] MEDS: Nicotine 21 MG PATCH.TD24 TD SCH (10:30)
--- NOTE | 2016-09-27 11:12 | Nuclear Medicine Stress Report ---
Regadenoson Nuclear 2 day Name: Flor Caballero Date of Study: 09/26/2016 Date: 1985 Ht: 64.0 in Medical Record#: [id number] Age: 31 Wt: 255.0 lb Gender: Female Order #: [id number] Location: [facility] Room: 2NE3 Supervising Provider: Jeovany Grimaldo CNP Reading Physician: Surinder Fermin MD, [facility] Ordering Physician: Sunny Bender DO Primary Care Physician: Same as Ordering Provider Stress Technologist: Sanjay Garcia RRT, CCT Rug Frame Mounter: Pankaj Cobos Indications: Chest Pain Impression: Perfusion imaging was negative for ischemia or infarct. Pharmacologic ECG was non diagnostic for ischemia. Patient had no chest pain with stress. No arrhythmias noted with stress. Gated EF = 67%. There is no evidence of TID. No high risk findings identified History: Hypertension Hypercholesteremia History of Smoking Stress Test Summary: Stress Test Type: Pharmacologic Regadenoson 0.4mg/5ml given IV Baseline Information: Initial Heart Rate: 81 Blood Pressure: 106/84 Stress Information: Stress Time: 4 min 00 sec Test Terminated Due to (primary): Completed Protocol Maximum Blood Pressure: 128/80 Maximum Heart Rate: 103 Percent Maximum Heart Rate Achieved: 55 METS Reached: 1 Symptoms: Nausea Nuclear Summary: SPECT myocardial perfusion imaging using Tc99m Sestamibi given intravenously was performed at rest and following cardiac stress testing. The resting images were obtained following initial dose of 33.9 mCi. Following stress an additional dose of 35.9 mCi was given at peak exercise or 30 seconds post regadenoson infusion. Medication Given: Time Medication Dose Units Route Findings: Stress Note * Resting ECG demonstrated normal sinus rhythm. * No baseline arrhythmias were noted. * Pharmacologic stress ECG is non diagnostic for ischemia due to failure to reach target heartrate. * No arrhythmias were noted during stress. * Patient had no chest pain during stress. Study Quality * Study quality is average. Gated EF % * Gated EF = 67%. Left Ventricle * The left ventricle is not dilated. NORMALS * Normal wall motion. * Normal segmental perfusion in stress. Inferior Perfusion Rest * The inferior segment shows a moderate reduction in perfusion. Inferior Perfusion Stress * The inferior segment shows a mild reduction in perfusion. TID * No evidence of transient ischemic dilatation. Updated by Surinder Fermin MD, [facility] on 09/27/2016 11:05:32 AM electronically signed on 09/27/2016 11:07:03 AM with status of Final
--- NOTE | 2016-09-27 13:41 | Discharge Summary ---
Date of Encounter: 09/27/16 Time of Encounter: 13:00 - Discharge Diagnosis (1) DVT prophylaxis Priority: Secondary Status: Acute (2) Chest pain Priority: Primary Status: Acute Qualifiers: Chest pain type: other chest pain Qualified Code(s): R07.89 - Other chest pain; R07.8 - Other chest pain (3) Morbid obesity with BMI of 40.0-44.9, adult Priority: Primary Status: Chronic (4) CKD (chronic kidney disease) stage 3, GFR 30-59 ml/min Priority: Primary Status: Chronic (5) Tachyarrhythmia Priority: Primary Status: Acute (6) Anxiety associated with depression Priority: Secondary Status: Chronic - Discharge Medications Prescriptions: Nicotine Patch [Nicoderm] 21 mg TD DAILY #14 patch.[id number] Home Medications: Norethindrone-E.estradiol-Iron [Lo Loestrin Fe 1-10 Tablet] 1 tab PO DAILY 03/17 [History] Ginkgo Biloba [place] Extract [Ginkgo Biloba] 30 mg PO DAILY 08/11/16 [History] Biotin 1 mg PO DAILY 09/26/16 [History] FLUoxetine HCl [Prozac] 20 mg PO DAILY 09/26/16 [History] Fish Oil/Dha/Epa [Fish Oil 1,200 mg Fish Oil] 1 each PO DAILY 09/26/16 [History] Nicotine Patch [Nicoderm] 21 mg TD DAILY #14 patch.td24 09/27/16 [Rx] Allergies/Adverse Reactions: Allergies No Known Allergies Allergy (Verified 09/26/16 12:43) Date of admission: 09/26/16 18:44 Primary care physician: Bethany May DO Discharging clinician: Piper Holm Anticipated date of discharge: 09/27/16 - Patient Status Disposition: Home, Self-Care Condition: Good Functional capacity at discharge: independent ambulation Overall status at discharge: patient is back to baseline - Discharge Instructions Follow Up With: Unassigned,Provider [Non-Partnered Physician] - Forms: ED Satisfaction Letter - Diet and Activity Activity: increase activity as tolerated Diet: low fat, low cholesterol, low salt diet Interval History: History of present illness: Patient is a 31-year-old female who complains of acute onset of chest pain 2 hours ago sharp with pressure sided chest with radiation across the right side of chest wall. Patient states taking deep breaths makes the pain better, exertion makes the pain worse. Patient has shortness of breath after walking 30 feet. Patient denies taking anything for pain Patient states she has had periods of chest pressure before and had an echocardiogram done 6 years ago. Hospital course: Ms. Caballero is a 31 year old female admitted for chest pain. She was placed on cardiac monitoring. 2 sets of troponin negative. Echoardiogram negative. Chest CT negative. D-dimer negative. Stress test has been done, negative for ischemia. Patient has been pain free for 2 days. Her urine toxicity test that shows a marijuana positive, which probably accounted for the chest pain or palpitation. We will discharge patient home today, I educated her stopped taking marijuana. Saw and examined the patient today. She is awake alert, denies chest pain or shortness of breath. Vitals are stable. Will discharge patient home today and follow-up with PCP as outpatient. Time spent discussing smoking cessation with patient: more than 10 minutes - Time Spent with Patient Total time spent providing and/or coordinating discharge services: Greater than 30 minutes - Constitutional Vitals: Temp Pulse Resp BP Pulse Ox 98.4 F 76 18 121/82 97 09/27/16 07:00 09/27/16 07:00 09/27/16 07:00 09/27/16 07:00 09/27/16 07:00 General appearance: Present: cooperative, mild distress, A&O X 3, morbidly obese , pleasant, answers questions appropriately - Head Head exam: Present: atraumatic, normocephalic - Eye Eye exam: Present: PERRL, conjuntiva pink, sclera anicteric Pupils: Present: PERRL - Neck Neck exam general surgery: Present: supple, trachea midline. Absent: lymphadenopathy - Respiratory Respiratory exam: Present: CTAB. Absent: accessory muscle use, rales, rhonchi, wheezes - Cardiovascular Cardiovascular exam: Present: RRR, +S1, +S2. Absent: diastolic murmur, gallop, rubs, systolic murmur - GI/Abdominal GI/Abdominal exam: Present: normal bowel sounds, soft, no peritoneal signs. Absent: distended, tenderness - Extremities Exam Extremities exam: Present: warm, radial pulses palpable and symetrical. Absent : calf tenderness, cyanotic, pedal edema - Neurological Exam Neurological exam: Present: CN II-XII intact, oriented X3, no focal deficits. Absent: pronater drift, facial droop, speech deficit - Skin Skin exam: Present: dry, intact
--- NOTE | 2016-09-28 09:00 | Electrocardiograph Report ---
[address] [address] Test Date: 2016-09-25 Pat Name: Flor Caballero Department: 104 Room: 2NE31 Gender: F Rejogger: EDDIE : 1985 Requested By: Bon Allison Order Number: [id number] Reading MD: Surinder Fermin MD Measurements Intervals [place] Rate: 106 P: 64 WY: 155 QRS: 22 QRSD: 84 T: 56 QT: 328 QTc: 390 Interpretive Statements SINUS TACHYCARDIA WITH OCCASIONAL SUPRAVENTRICULAR PREMATURE COMPLEXES LOW QRS VOLTAGE IN PRECORDIAL LEADS BASELINE ARTIFACT Electronically Signed On 09-28-2016 8:58:29 EDT by Surinder Fermin MD
--- NOTE | 2016-09-28 09:02 | Electrocardiograph Report ---
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
== END 2016-09-27 14:07 | disposition home or self-care (01) | DRG 203 ==
LOC: EMEROO 21:59 → 2NNU 21:59 → SUATTDRO 09-26 01:48 → 2NENU 09-26 01:49
PROVIDERS: ADMIT Internal Medicine; ATTEND Internal Medicine

== ENCOUNTER 2017-02-25 03:12 | Observation (INO) ==
[2017-02-25] MEDS ORDERED: *HR* HYDROmorphone (PF) 1 MG/ML SYRINGE IVP ONE (04:44)
[2017-02-25] MEDS ORDERED: Ondansetron 4 MG/2 ML VIAL IVP ONE (04:55)
[2017-02-25] MEDS ORDERED: *HR* Morphine 2 MG/ML SYRINGE IVP ONE (04:55)
[2017-02-25] MEDS ORDERED: 0.9 % Sodium Chloride 1,000 ML IV SCH (05:00)
--- NOTE | 2017-02-25 05:14 | Emergency Department Note ---
Disposition Clinical Impression: Renal stone UTI (urinary tract infection) Qualifiers: Urinary tract infection type: acute pyelonephritis Qualified Code(s): N10 - Acute pyelonephritis Disposition: Admitted As Inpatient Condition: Good Time of Disposition: 04:59 General Adult HPI - General Chief complaint: ED Back Pain/Injury Stated complaint: "I have a kidney stone" Source: patient, family Limitations: no limitations Nursing Notes Reviewed: Yes Vital Signs Reviewed: Yes - History of Present Illness HPI Narrative: 31-year-old female with past medical history of obstructive kidney stones, renal tubular acidosis, medullary sponge disease of the kidney is in the emergency department with a few history of left flank pain, hematuria, nausea. She states that this is how she feels when she has an obstructive stone. She follows Dr. Salas, a urologist who manages her stones. She has not taken anything for pain. Pain Scale: 10 - Related Data Home Medications Medication Instructions Recorded Confirmed Biotin 1 mg PO DAILY 09/26/16 01/12/17 BuPROPion SR (12 HR) [Wellbutrin 150 mg PO BID 12/29/16 01/12/17 SR] Labetalol [Trandate] 100 mg PO DAILY 12/29/16 01/12/17 Biotin 5 mg PO DAILY 01/12/17 01/12/17 Cetirizine HCl [Zyrtec] 10 mg PO DAILY 01/12/17 01/12/17 FLUoxetine HCl [Fluoxetine HCl] 40 mg PO DAILY 01/12/17 01/12/17 Fluticasone Propionate Nasal 2 spray NS DAILY 01/12/17 01/12/17 [Flonase] Garcinia Cambogia 1 tab PO DAILY 01/12/17 Norethindrone-E.estradiol-Iron [Lo 1 tab PO DAILY 01/12/17 01/12/17 Loestrin Fe 1-10 Tablet] Previous Rx's Medication Instructions Recorded HYDROcodone/Acet 5/325 mg [[place] 1 tab PO Q6H PRN #15 01/12/17 5-325 mg] Ferrous Sulfate 325 mg PO DAILY #30 tablet 01/29/17 Megestrol Acetate [Megace] 40 mg PO BID #14 tablet 01/29/17 Sulfamethoxazole/Trimeth DS 1 each PO BID #20 tablet 02/25/17 [Bactrim DS] Tamsulosin HCl [Flomax] 0.4 mg PO DAILY #7 cap.er.24h 02/25/17 Allergies Allergy/AdvReac Type Severity Reaction Status Date / Time No Known Allergies Allergy Verified 01/29/17 10:30 All systems ED: reviewed and negative except as stated. Constitutional: Denies: fever, chills Gastrointestinal: Reports: nausea. Denies: vomiting Musculoskeletal: Reports: back pain Past Medical History - Past Medical History Medical history: Reports: kidney stones Surgical history: Reports: cholecystectomy, ureteral stent, other Psychiatric history: Reports: anxiety, depression METHODS ANALYST history: Reports: no METHODS ANALYST history - Social History Smoking Status: Current every day smoker Smokeless Tobacco Status: No Alcohol use: Reports: occasionally Drug use: Reports: none Physical Exam - General Limitations: no limitations General appearance: alert - Head Head exam: atraumatic, normocephalic - Eye Eye exam: Absent: scleral icterus, conjunctival injection - ENT ENT exam: normal oropharynx, mucous membranes moist - Neck Neck exam: Present: trachea midline. Absent: tenderness, meningismus - Chest Chest inspection: Present: normal inspection, symmetric chest wall rise - Respiratory Respiratory exam: Present: normal lung sounds bilaterally. Absent: respiratory distress, wheezes, stridor - Cardiovascular Cardiovascular exam: Present: normal rhythm, tachycardia, normal heart sounds - Abdominal Exam Abdominal exam: Present: soft, tenderness (Left upper quadrant). Absent: distention, guarding, rebound Abdominal tenderness: Present: moderate - Extremities Exam Extremities exam: Present: normal capillary refill. Absent: calf tenderness - Back Exam Back exam: Present: CVA tenderness (L) - Neurological Exam Neurological exam: Present: alert, oriented X3 - Psychiatric Psychiatric exam: Present: normal affect, normal mood - Skin Skin exam: Present: warm, dry, intact Course Course Narrative: 31-year-old female with past medical history of obstructive stones presents to the emergency department with left flank pain similar to the patient has what she has an obstructive stone. At this time, I will order a CT scan of the abdomen and pelvis. We will also obtain a urinalysis, urine , CBC, CMP. Patient is currently hemodynamically stable but she is tachycardic. I will give this patient a liter of normal saline as well as 4 mg of morphine IV. - Reevaluation(s) Reevaluation #1: The patient does not have a leukocytosis. However, her urine does reveal positive leukocyte esterase and nitrites and blood. I have provided her with 1 gram of Rocephin. I have also consulted urology. Dr. Salas said to admit her under his service. This patient is currently hemodynamically stable at this time. I discussed the plan with the patient and she agreed. Abdomen/Pelvis CT 02/25/17 00:00 IMPRESSION: Medullary nephrocalcinosis, with moderate left-sided hydronephrosis and hydroureter secondary to a distal ureteral calculus measuring 3.5 mm, as well as a calculus at the ureteral vesicle junction measuring 7.9 mm. Cholecystectomy. Set D/ / Amos Allen MD / Amos Allen MD Interpreting Provider: Amos Allen MD Vital Signs Temperature 98.2 F 02/25/17 03:12 Pulse Rate 121 02/25/17 03:12 Respiratory Rate 22 02/25/17 03:12 Blood Pressure 174/122 02/25/17 03:12 O2 Sat by Pulse Oximetry 96 02/25/17 03:12 Temperature 98.1 F 02/25/17 05:57 Pulse Rate 110 02/25/17 05:57 Respiratory Rate 18 02/25/17 05:57 Blood Pressure 145/77 02/25/17 05:57 O2 Sat by Pulse Oximetry 97 02/25/17 05:57 Oxygen Delivery Oxygen Delivery Room Air Time: 04:50 Vital Signs Temperature 98.2 F 02/25/17 03:12 Pulse Rate 121 02/25/17 03:12 Respiratory Rate 22 02/25/17 03:12 Blood Pressure 174/122 02/25/17 03:12 O2 Sat by Pulse Oximetry 96 02/25/17 03:12 Temperature 98.1 F 02/25/17 05:57 Pulse Rate 110 02/25/17 05:57 Respiratory Rate 18 02/25/17 05:57 Blood Pressure 145/77 02/25/17 05:57 O2 Sat by Pulse Oximetry 97 02/25/17 05:57 Oxygen Delivery Oxygen Delivery Room Air Medical Decision Making - Medical Records Medical records reviewed: Yes I reviewed the patient's medical records. - Lab Data Lab results reviewed: Yes I reviewed the patient's lab results. Result diagrams: 02/25/17 03:15 Lab Results 02/25/17 02/25/17 02/25/17 Range/Units 03:15 03:20 03:20 Sodium 140 (136-145) mEq/L Potassium 3.4 L (3.5-4.5) mEq/L Chloride 110 H (98-109) mEq/L Carbon Dioxide 20 (19-29) mEq/L BUN 13 (7-20) mg/dL Creatinine 1.22 H (0.57-1.11) mg/dL Est GFR ( Amer) > 60 (> 60) Est GFR (Non-Af Amer) 51 L (> 60) BUN/Creatinine Ratio 11 (6-26) Glucose 120 H (70-99) mg/dL Calculated Osmolality 291 (280-300) Calcium 9.1 (8.6-10.8) mg/dL Total Bilirubin 0.2 (0.2-1.2) mg/dL Direct Bilirubin 0.2 (0.0-0.5) mg/dL Indirect Bilirubin 0.0 (0.0-1.2) mg/dL AST 10 (5-34) Units/L ALT 17 (0-55) Units/L Alkaline Phosphatase 65 (38-126) Units/L Serum Total Protein 7.0 (6.0-8.3) g/dL Albumin 3.2 L (3.5-5.0) g/dL Globulin 3.8 H (2.4-3.5) g/dL Albumin/Globulin Ratio 0.8 L (1.1-2.2) Lipase 54 (8-78) Units/L Urine Color Yellow (Yellow) Urine Clarity Cloudy A (Clear) Urine pH 7.0 (5.0-8.0) pH Units Ur Specific [place] 1.015 (1.010-1.025) Urine Protein Negative (Neg-Trace) mg/dL Urine Glucose (UA) Normal (Normal) mg/dL Urine Ketones Negative (Negative) mg/dL Urine Blood Moderate H (Negative) Urine Nitrite Positive A (Negative) Urine Bilirubin Negative (Negative) Urine Urobilinogen Normal (Normal) mg/dL Ur Leukocyte Esterase Large H (Negative) Urine Microscopic RBC 0-3 (0-3) per hpf Urine Microscopic WBC 5-15 H (0-3) per hpf Ur Squamous Epith Cells Few (None-Few) per lpf Urine Bacteria None Seen (None-Few) per hpf Hyaline Casts None Seen (None-Few) per lpf Urine Test Negative (Negative) - Radiology Data Radiology results reviewed: Yes I reviewed the patient's radiology results. Attestation Statement - Attestation Attestation: I, Venkata Luna MD, personally evaluated this patient and discussed their management with the resident physician. I reviewed the resident's note and agree with the documented findings, medical decision making, and plan of care. 31-year-old female with history of recurrent kidney stones presents to the emergency department with a complaint of severe left flank pain which awoke her from sleep about 2 AM. Pain radiates to the left lower abdomen and left groin area. Some nausea and vomiting secondary to pain. No fever. On examination patient is a well-developed obese female in no acute distress but does appear to be in moderate discomfort. She is alert and oriented 3. There is no cyanosis or diaphoresis. Breath sounds are clear and equal bilaterally. Heart regular rate and rhythm. Abdomen is soft with normal bowel sounds. Is moderate left mid and lower abdominal tenderness as well as moderate left CVA tenderness. Labs reviewed. Nitrite positive UTI. CT shows 2 separate stones in the distal left ureter with moderate left hydroureteronephrosis. The urologist on-call, Dr. Salas, was consulted and accepted admission of the patient to his service.
[2017-02-25] MEDS ORDERED: *HR* HYDROmorphone (PF) 1 MG/ML SYRINGE IVP PRN (05:37)
[2017-02-25] MEDS ORDERED: *HR* Morphine 2 MG/ML SYRINGE IVP PRN ×2 (05:37)
[2017-02-25] MEDS ORDERED: Ondansetron 4 MG/2 ML VIAL IVP PRN (05:37)
[2017-02-25] MEDS ORDERED: Ketorolac 30 MG/ML VIAL IVP PRN (05:37)
[2017-02-25] MEDS ORDERED: *HR* Promethazine 25 MG/ML VIAL IVP PRN (05:37)
[2017-02-25] MEDS ORDERED: Naloxone 0.4 MG/ML INJ IVP PRN (05:37)
--- NOTE | 2017-02-25 05:43 | Urology History & Physical ---
Date of Encounter: 02/25/17 Time of Encounter: 05:42 Assessment and Plan (1) Ureteral stone with hydronephrosis Current Visit: Yes Status: Acute pt passed the larger distal stone in the ER. still with some pain but not severe. feels OK. We discussed that the 2 or 3 mm stone may still be present but she has in the past been able to pass small to medium size stones without an issue. We elected not to proceed with surgical management today. We'll continue to observe in the hospital today with IV fluids. Throughout the day if her pain decreases and she feels well we'll plan on discharge today. If continues to have pain and issues may keep the patient in the hospital overnight and proceed with surgical intervention tomorrow. History of Present Illness Chief complaint: flank pain. HPI: Ms. Caballero is a 31 year old female well known to urology. ER visit this AM. CT scan moderate left-sided hydronephrosis and hydroureter secondary to a distal ureteral calculus measuring 3.5 mm, as well as a calculus at the ureteral vesicle junction measuring 7.9 mm. Past Med Surg Social Fam HX - Past Medical History Medical history: kidney stones Psychiatric history: anxiety, depression - Past Surgical History Surgical History: cholecystectomy, ureteral stent, other - Social History Smoking Status: Current every day smoker Smokeless Tobacco Status: No Alcohol use: occasionally Drug use: none - Family History Father Twin of Family Member: Yes, Fraternal Living Status: Still Living Hx Family Cardiac Disorders: Yes (Hypertension) Hx Family GI Disorders: No Hx Family Endocrine Disorder: Yes (Thyroid disorder; diabetes) Hx Family Neuromuscular Disorders: No Hx Family Neurologic Disorders: No Hx Family HEENT Disorders: No Hx Family Autoimmune Disorders: No Mother Living Status: Still Living Hx Family Cardiac Disorders: Yes (Hypertension) Hx Family Endocrine Disorder: Yes (Diabetes) Hx Family Neuromuscular Disorders: Yes (Multiple sclerosis) Medications and Allergies Biotin 1 mg PO DAILY 09/26/16 [History] BuPROPion SR (12 HR) [Wellbutrin SR] 150 mg PO BID 12/29/16 [History] Labetalol [Trandate] 100 mg PO DAILY 12/29/16 [History] Biotin 5 mg PO DAILY 01/12/17 [History] Cetirizine HCl [Zyrtec] 10 mg PO DAILY 01/12/17 [History] FLUoxetine HCl [Fluoxetine HCl] 40 mg PO DAILY 01/12/17 [History] Fluticasone Propionate Nasal [Flonase] 2 spray NS DAILY 01/12/17 [History] Garcinia Cambogia 1 tab PO DAILY 01/12/17 [History] HYDROcodone/Acet 5/325 mg [[place] 5-325 mg] 1 tab PO Q6H PRN #15 01/12/17 [Rx] Norethindrone-E.estradiol-Iron [Lo Loestrin Fe 1-10 Tablet] 1 tab PO DAILY 01/12 [History] Ferrous Sulfate 325 mg PO DAILY #30 tablet 01/29/17 [Rx] Megestrol Acetate [Megace] 40 mg PO BID #14 tablet 01/29/17 [Rx] 3 Allergy/AdvReac Type Severity Reaction Status Date / Time No Known Allergies Allergy Verified 01/29/17 10:30 Review of Systems - Constitutional no chills, no fever(s) - EENT Nose, mouth and throat: no dizziness - Cardiovascular no chest pain - Gastrointestinal abdominal pain, nausea - Genitourinary Genitourinary: flank pain - Musculoskeletal back pain - Integumentary no erythema - Neurological no confusion - Psychiatric no anxiety - Hematologic/Lymphatic no easy bleeding - Allergic/Immunologic no throat swelling Exam Initial Vital Signs Temp Pulse Resp BP Pulse Ox 98.2 F 121 22 174/122 96 02/25/17 03:12 02/25/17 03:12 02/25/17 03:12 02/25/17 03:12 02/25/17 03:12 - General physical appearance Present: well developed, moderate pain - Eyes Present: PERRL - ENT Present: normal nares - Neck Present: no masses - Respiratory Present: normal respiratory effort - Cardiovascular Cardiovascular exam IM: RRR - Abdomen Abdomen: Present: soft - Integumentary Present: no rash, no growths - Neurologic Present: normal coordination. Absent: disoriented, confused - Musculoskeletal Present: normal gait - Additional Findings +left CVA tenderness Urology Results - Labs 02/25/17 03:15 All other labs normal.
[2017-02-25] MEDS ORDERED: 0.9 % Sodium Chloride 1,000 ML IVC SCH (05:45)
[2017-02-25 06:10] LABS: Clarity,Urine Cloudy (Clear); Color,Urine Yellow (Yellow); Glucose,Urine (UA) Normal (Normal)
[2017-02-25 06:11] LABS: Alanine Aminotransferase 17 Units/L (0-55); Albumin 3.2 g/dL (3.5-5.0); Albumin/Globulin Ratio 0.8 (1.1-2.2); Alkaline Phosphatase 65 Units/L (38-126); Aspartate Amino Transferase 10 Units/L (5-34); BUN/Creatinine Ratio 11 (6-26); Bilirubin,Direct 0.2 mg/dL (0.0-0.5); Bilirubin,Total 0.2 mg/dL (0.2-1.2); Blood Urea Nitrogen 13 mg/dL (7-20); Calcium 9.1 mg/dL (8.6-10.8); Carbon Dioxide 20 mEq/L (19-29); Chloride 110 mEq/L (98-109); Globulin 3.8 g/dL (2.4-3.5); Glucose 120 mg/dL (70-99); Lipase 54 Units/L (8-78); Osmolality,Calculated 291 (280-300); Potassium 3.4 mEq/L (3.5-4.5); Sodium 140 mEq/L (136-145); eGFR For African Americans > 60 (> 60); eGFR For Non-African Americans 51 (> 60)
[2017-02-25 06:11] LABS: Bilirubin,Urine Negative (Negative); Blood,Urine Moderate (Negative); Ketones,Urine Negative (Negative); Leukocyte Esterase,Urine Large (Negative); Nitrite,Urine Positive (Negative); Protein,Urine Negative (Neg-Trace); RBC,Urine 0-3 per hpf (0-3); Specific Gravity,Urine 1.015 (1.010-1.025); Squamous Epithelial Cell,Urine Few per lpf (None-Few); Urobilinogen,Urine Normal (Normal)
[2017-02-25 06:12] LABS: Bacteria,Urine None Seen per hpf (None-Few); Hyaline Casts,Urine None Seen per lpf (None-Few)
--- NOTE | 2017-02-25 06:31 | Discharge Summary ---
Date of Encounter: 02/25/17 Time of Encounter: 06:28 - Discharge Diagnosis (1) Ureteral stone with hydronephrosis Priority: Primary Status: Resolved Comments: Patient passed larger distal stone at time of admission - Discharge Medications Prescriptions: Sulfamethoxazole/Trimeth DS [Bactrim DS] 1 each PO BID #20 tablet Tamsulosin HCl [Flomax] 0.4 mg PO DAILY #7 cap.er.24h Home Medications: Biotin 1 mg PO DAILY 09/26/16 [History] BuPROPion SR (12 HR) [Wellbutrin SR] 150 mg PO BID 12/29/16 [History] Labetalol [Trandate] 100 mg PO DAILY 12/29/16 [History] Biotin 5 mg PO DAILY 01/12/17 [History] Cetirizine HCl [Zyrtec] 10 mg PO DAILY 01/12/17 [History] FLUoxetine HCl [Fluoxetine HCl] 40 mg PO DAILY 01/12/17 [History] Fluticasone Propionate Nasal [Flonase] 2 spray NS DAILY 01/12/17 [History] Garcinia Cambogia 1 tab PO DAILY 01/12/17 [History] HYDROcodone/Acet 5/325 mg [[place] 5-325 mg] 1 tab PO Q6H PRN #15 01/12/17 [Rx] Norethindrone-E.estradiol-Iron [Lo Loestrin Fe 1-10 Tablet] 1 tab PO DAILY 01/12 [History] Ferrous Sulfate 325 mg PO DAILY #30 tablet 01/29/17 [Rx] Megestrol Acetate [Megace] 40 mg PO BID #14 tablet 01/29/17 [Rx] Sulfamethoxazole/Trimeth DS [Bactrim DS] 1 each PO BID #20 tablet 02/25/17 [Rx] Tamsulosin HCl [Flomax] 0.4 mg PO DAILY #7 cap.er.24h 02/25/17 [Rx] Allergies/Adverse Reactions: 3 Allergy/AdvReac Type Severity Reaction Status Date / Time No Known Allergies Allergy Verified 01/29/17 10:30 Date of admission: 02/25/17 05:26 Primary care physician: Bennie Salas Discharging clinician: Bennie Salas Anticipated date of discharge: 02/25/17 - Patient Status Disposition: Home, Self-Care Condition: Good Functional capacity at discharge: independent ambulation Overall status at discharge: patient is progressing back to baseline - Discharge Instructions Follow Up With: Bennie Salas MD [Primary Care Provider] - (no need for prompt followup unless issues) Additional Instructions: Expect some discomfort for the next few days. This should begin to resolve Call if fever over 101 - Diet and Activity Activity: increase activity as tolerated Diet: advance to your usual diet - Hospital Course Hospital course: Ms. Caballero is a 31 year old female admission from the emergency room this morning. While she was still the emergency room she passed a 7.9 mm distal stone. We discussed that she had a 2-3 mm stone just proximal to this. She is unsure if she passed this as well. Minimal pain at this point. Plan on discharge today if she feels well. If continues to have significant pain or fever will hold discharge and consider surgical intervention. - Time Spent with Patient Total time spent providing and/or coordinating discharge services: Less than 30 minutes Exam Initial Vital Signs Temp Pulse Resp BP Pulse Ox 98.2 F 121 22 174/122 96 02/25/17 03:12 02/25/17 03:12 02/25/17 03:12 02/25/17 03:12 02/25/17 03:12 - General physical appearance Present: well developed, no distress
[2017-02-25 07:21] LABS: Basophils % 0.2 %; Immature Granulocytes % 0.5 % (0-4)
[2017-02-25 07:23] LABS: Hematocrit 29.4 % (35.3-44.9); Hemoglobin 8.7 g/dL (11.5-15.4); Lymphocytes # 0.6 K/mcL (0.6-4.6); Lymphocytes % 5.7 %; Mean Corpuscular HGB Conc 29.6 g/dL (31.6-35.5); Mean Corpuscular Hemoglobin 26.2 pg (28.0-33.3); Mean Corpuscular Volume 88.6 fL (83.0-100.0); Mean Platelet Volume 10.5 fL (9.4-12.4); Monocytes # 0.3 K/mcL (0.0-1.3); Monocytes % 3.2 %; Neutrophils # 9.1 K/mcL (1.6-8.9); Platelet Count 266 K/mcL (140-400); Red Blood Count 3.32 M/mcL (3.82-4.97); Red Cell Distribution Width 16.4 % (11.5-14.5); Segmented Neutrophils % 90.4 %
[2017-02-25 07:54] LABS: Anisocytosis 1+ (Not Present); Hypochromasia Present (Not Present); Microcytosis Present (Not Present); Ovalocytes 1+ (Not Present); Platelet Estimate Normal (Normal); Poikilocytosis 1+ (Not Present)
[2017-02-25] MEDS ORDERED: Loratadine 10 MG TABLET PO SCH (09:00)
[2017-02-25] MEDS ORDERED: FLUoxetine 20 MG CAPSULE PO SCH (09:00)
[2017-02-25] MEDS ORDERED: BuPROPion SR (12 HR) 150 MG TABLET PO SCH (09:00)
[2017-02-25] MEDS ORDERED: LO LOESTRIN FE PO SCH (09:00)
[2017-02-25] MEDS ORDERED: *HR* OxyCODONE/APAP 5/325 TABLET PO PRN (10:59)
[2017-02-25 11:01] VITALS: BP 102/63
== END 2017-02-25 12:27 | disposition home or self-care (01) ==
LOC: EMEROO 04:16 → 3ANU 04:16
PROVIDERS: ADMIT Urology; ATTEND Urology

== ENCOUNTER 2017-07-16 09:39 | Observation (INO) ==
[2017-07-16] MEDS ORDERED: Ketorolac 30 MG/ML VIAL IVP ONE (09:51)
[2017-07-16] MEDS ORDERED: 0.9 % Sodium Chloride 1,000 ML IVC ONE (09:51)
[2017-07-16] MEDS ORDERED: *HR* FentaNYL (PF) 100 MCG/2 ML VIAL IVP ONE (09:51)
--- NOTE | 2017-07-16 09:58 | Emergency Department Note ---
Disposition Clinical Impression: Ureterolithiasis Disposition: Admitted As Inpatient Condition: Good Time of Disposition: 12:00 General Adult HPI - General Chief complaint: ED Abdominal Pain Stated complaint: left flank pain Time Seen by Provider: 07/16/17 09:44 Source: patient Mode of arrival: ambulatory Limitations: no limitations Nursing Notes Reviewed: Yes Vital Signs Reviewed: Yes - History of Present Illness HPI Narrative: Patient is a 32 year old female that presents to ED today for Left sided flank pain that moves to the left anterior abdomen. Pain has been intermittent this past week but is worse today. Patient describes pain as sharp now constant and rates her pain as 10/10 in severity. The pain is not relieved by anything and is aggravated with movement. Patient complains of nausea but no vomiting. Patient admits to increased frequency of urination and small amounts of blood in urine for the past day. Patient also admits to increased pressure in lower abdomen for the past day. Patient gives history of kidney stones most recent being 8-10 months ago, admits pain today is very similar to previous episode. Onset (ago): day(s) Radiation: abdomen Pain Severity: similar to prior episodes Pain Scale: 10 Quality: sharp, constant Consistency: Worsening Improves with: nothing Worsens with: movement Associated symptoms: Reports: nausea/vomiting (nausea but no vomiting) - Related Data Home Medications Medication Instructions Recorded Confirmed BuPROPion SR (12 HR) [Wellbutrin 150 mg PO BID 12/29/16 07/16/17 SR] FLUoxetine HCl [Fluoxetine HCl] 40 mg PO DAILY 01/12/17 07/16/17 Fluticasone Propionate Nasal 2 spray NS DAILY PRN 01/12/17 07/16/17 [Flonase] Cetirizine HCl [Zyrtec] 10 mg PO DAILY PRN 04/22/17 07/16/17 Metoprolol XL (24 HR) Succ [Toprol 25 mg PO DAILY 04/22/17 07/16/17 Xl] Potassium Citrate/Citric Acid 1 tab PO Q48H 04/22/17 07/16/17 [Cytra-K Crystals Packet] Allergies Allergy/AdvReac Type Severity Reaction Status Date / Time No Known Allergies Allergy Verified 01/29/17 10:30 All systems ED: reviewed and negative except as stated. Constitutional: Denies: fever Cardiovascular: Denies: chest pain Respiratory: Denies: dyspnea Gastrointestinal: Reports: abdominal pain. Denies: vomiting, diarrhea Musculoskeletal: Reports: back pain Past Medical History - Past Medical History Attestation: Yes The following information was validated with the patient. Source: patient Medical history: Reports: kidney stones Surgical history: Reports: , cholecystectomy, ureteral stent, other Psychiatric history: Reports: anxiety, depression CONSULTING PSYCHIATRIST history: Reports: no CONSULTING PSYCHIATRIST history - Social History Smoking Status: Current every day smoker Smokeless Tobacco Status: No Alcohol use: Reports: rarely Drug use: Reports: none Physical Exam Patient is alert and oriented x 3, appears in moderate distress. Cardiac exam reveals regular rate and rhythm with good S1 and S2 sounds, Respiratory exam reveals lungs clear to auscultation bilaterally with full breath sounds. Abdominal exam reveals normal bowl sounds x 4 and tender abdomen to palpation in left lower quadrant. - General Limitations: no limitations General appearance: alert, in no apparent distress, other (N pain but no distress) - Head Head exam: atraumatic, normocephalic - Eye Eye exam: Present: normal appearance, PERRL - ENT ENT exam: normal exam, normal oropharynx - Neck Neck exam: Present: normal inspection - Chest Chest inspection: Present: normal inspection - Respiratory Respiratory exam: Present: normal lung sounds bilaterally. Absent: respiratory distress - Cardiovascular Cardiovascular exam: Present: regular rate, normal rhythm, normal heart sounds - Abdominal Exam Abdominal exam: Present: soft - Neurological Exam Neurological exam: Present: alert, oriented X3 - Psychiatric Psychiatric exam: Present: normal affect - Skin Skin exam: Present: warm, dry Course - Reevaluation(s) Reevaluation #1: Patient reevaluated and feeling better at this time. Pain controlled. Awaiting CT read. Time: 11:44 - Consultations Consultation #1: Page Dr. Salas. He is in a procedure. Awaiting callback. Rocephin ordered. Patient sleeping comfortable this time. Time: 13:15 Consultation #2: Dr. Salas states bilateral obstructing stones and a history of sepsis. Reviewed all cultures. Sensitive to Rocephin. Starting IV antibiotic. Will admit to Dr. Hardin's service. Patient is agreeable. Time: 13:38 Vital Signs Temperature 98.8 F 07/16/17 09:41 Pulse Rate 76 07/16/17 09:41 Respiratory Rate 18 07/16/17 09:41 Blood Pressure 152/95 07/16/17 09:41 O2 Sat by Pulse Oximetry 97 07/16/17 09:41 Temperature 98.4 F 07/16/17 14:12 Pulse Rate 76 07/16/17 09:41 Respiratory Rate 18 07/16/17 14:12 Blood Pressure 140/90 07/16/17 14:12 O2 Sat by Pulse Oximetry 97 07/16/17 09:41 Oxygen Delivery Oxygen Delivery Room Air Medical Decision Making - Lab Data Result diagrams: 07/16/17 12:35 07/16/17 12:35 Lab Results 07/16/17 07/16/17 07/16/17 Range/Units 10:20 10:20 11:57 WBC (4.3-11.1) K/mcL RBC (3.82-4.97) M/mcL Hgb (11.5-15.4) g/dL Hct (35.3-44.9) % MCV (83.0-100.0) fL MCH (28.0-33.3) pg MCHC (31.6-35.5) g/dL RDW (11.5-14.5) % Plt Count (140-400) K/mcL MPV (9.4-12.4) fL Immature Gran % (0-4) % Seg Neutrophils % % Lymphocytes % % Monocytes % % Eosinophils % % Basophils % % Neutrophils # (1.6-8.9) K/mcL Lymphocytes # (0.6-4.6) K/mcL Monocytes # (0.0-1.3) K/mcL Eosinophils # (0.0-0.6) K/mcL Basophils # (0.0-0.2) K/mcL Platelet Estimate (Normal) Immature Plt Fraction (1.1-6.1) % Anisocytosis (Not Present) Microcytosis (Not Present) Sodium (136-145) mEq/L Potassium (3.5-5.1) mEq/L Chloride (98-107) mEq/L Carbon Dioxide (23-29) mEq/L BUN (6-20) mg/dL Creatinine (0.60-1.20) mg/dL Est GFR ( Amer) (> 60) Est GFR (Non-Af Amer) (> 60) BUN/Creatinine Ratio (6-26) Glucose (70-105) mg/dL Calculated Osmolality (280-300) Calcium (8.6-10.3) mg/dL Urine Color Yellow (Yellow) Urine Clarity Cloudy A (Clear) Urine pH 6.0 (5.0-8.0) pH Units Ur Specific [place] 1.011 (1.010-1.025) Urine Protein Trace (Neg-Trace) mg/dL Urine Glucose (UA) Normal (Normal) mg/dL Urine Ketones Negative (Negative) mg/dL Urine Blood Moderate H (Negative) Urine Nitrite Positive A (Negative) Urine Bilirubin Negative (Negative) Urine Urobilinogen Normal (Normal) mg/dL Ur Leukocyte Esterase Moderate H (Negative) Urine Microscopic RBC 15-30 H (0-3) per hpf Urine Microscopic WBC 50-100 H (0-3) per hpf Ur Squamous Epith Cells Many H (None-Few) per lpf Urine Bacteria Many H (None-Few) per hpf Hyaline Casts None Seen (None-Few) per lpf Ur Culture Indicated? NO. (NO) Urine Test Negative (Negative) Specimen Rejected Volume 07/16/17 07/16/17 Range/Units 12:35 12:35 WBC 13.7 H (4.3-11.1) K/mcL RBC 5.12 H (3.82-4.97) M/mcL Hgb 11.5 (11.5-15.4) g/dL Hct 39.3 (35.3-44.9) % MCV 76.8 L (83.0-100.0) fL MCH 22.5 L (28.0-33.3) pg MCHC 29.3 L (31.6-35.5) g/dL RDW 21.7 H (11.5-14.5) % Plt Count 258 (140-400) K/mcL MPV 10.5 (9.4-12.4) fL Immature Gran % 0.4 (0-4) % Seg Neutrophils % 87.9 % Lymphocytes % 9.8 % Monocytes % 1.1 % Eosinophils % 0.7 % Basophils % 0.1 % Neutrophils # 12.0 H (1.6-8.9) K/mcL Lymphocytes # 1.3 (0.6-4.6) K/mcL Monocytes # 0.2 (0.0-1.3) K/mcL Eosinophils # 0.1 (0.0-0.6) K/mcL Basophils # 0.0 (0.0-0.2) K/mcL Platelet Estimate Normal (Normal) Immature Plt Fraction 3.9 (1.1-6.1) % Anisocytosis 2+ A (Not Present) Microcytosis Present A (Not Present) Sodium 138 (136-145) mEq/L Potassium 4.0 (3.5-5.1) mEq/L Chloride 109 H (98-107) mEq/L Carbon Dioxide 22 L (23-29) mEq/L BUN 15 (6-20) mg/dL Creatinine 1.05 (0.60-1.20) mg/dL Est GFR ( Amer) > 60 (> 60) Est GFR (Non-Af Amer) > 60 (> 60) BUN/Creatinine Ratio 14 (6-26) Glucose 110 H (70-105) mg/dL Calculated Osmolality 287 (280-300) Calcium 8.9 (8.6-10.3) mg/dL Urine Color (Yellow) Urine Clarity (Clear) Urine pH (5.0-8.0) pH Units Ur Specific [place] (1.010-1.025) Urine Protein (Neg-Trace) mg/dL Urine Glucose (UA) (Normal) mg/dL Urine Ketones (Negative) mg/dL Urine Blood (Negative) Urine Nitrite (Negative) Urine Bilirubin (Negative) Urine Urobilinogen (Normal) mg/dL Ur Leukocyte Esterase (Negative) Urine Microscopic RBC (0-3) per hpf Urine Microscopic WBC (0-3) per hpf Ur Squamous Epith Cells (None-Few) per lpf Urine Bacteria (None-Few) per hpf Hyaline Casts (None-Few) per lpf Ur Culture Indicated? (NO) Urine Test (Negative) Specimen Rejected Critical Care Time Critical Care Time: No
[2017-07-16] MEDS ORDERED: *HR* OxyCODONE Immed Rel 5 MG TABLET PO ONE ×2 (10:38→13:36)
[2017-07-16 12:03] LABS: Bilirubin,Urine Negative (Negative); Blood,Urine Moderate (Negative); Clarity,Urine Cloudy (Clear); Color,Urine Yellow (Yellow); Glucose,Urine (UA) Normal (Normal); Ketones,Urine Negative (Negative); Leukocyte Esterase,Urine Moderate (Negative); Nitrite,Urine Positive (Negative); Protein,Urine Trace mg/dL (Neg-Trace); Specific Gravity,Urine 1.011 (1.010-1.025); Urobilinogen,Urine Normal (Normal)
[2017-07-16 12:05] LABS: Bacteria,Urine Many per hpf (None-Few); Hyaline Casts,Urine None Seen per lpf (None-Few); RBC,Urine 15-30 per hpf (0-3); Squamous Epithelial Cell,Urine Many per lpf (None-Few); WBC,Urine 50-100 per hpf (0-3)
[2017-07-16 12:43] LABS: Hemoglobin 11.5 g/dL (11.5-15.4); Immature Granulocytes % 0.4 % (0-4); Mean Platelet Volume 10.5 fL (9.4-12.4)
[2017-07-16 12:45] LABS: Basophils % 0.1 %; Eosinophils # 0.1 K/mcL (0.0-0.6); Eosinophils % 0.7 %; Hematocrit 39.3 % (35.3-44.9); Immature Platelets 3.9 % (1.1-6.1); Lymphocytes % 9.8 %; Mean Corpuscular HGB Conc 29.3 g/dL (31.6-35.5); Mean Corpuscular Hemoglobin 22.5 pg (28.0-33.3); Mean Corpuscular Volume 76.8 fL (83.0-100.0); Monocytes # 0.2 K/mcL (0.0-1.3); Monocytes % 1.1 %; Platelet Count 258 K/mcL (140-400); Red Blood Count 5.12 M/mcL (3.82-4.97); Red Cell Distribution Width 21.7 % (11.5-14.5); Segmented Neutrophils % 87.9 %
[2017-07-16 12:47] LABS: Lymphocytes # 1.3 K/mcL (0.6-4.6)
[2017-07-16 13:00] LABS: BUN/Creatinine Ratio 14 (6-26); Blood Urea Nitrogen 15 mg/dL (6-20); Calcium 8.9 mg/dL (8.6-10.3); Carbon Dioxide 22 mEq/L (23-29); Chloride 109 mEq/L (98-107); Glucose 110 mg/dL (70-105); Osmolality,Calculated 287 (280-300); Sodium 138 mEq/L (136-145); eGFR For African Americans > 60 (> 60); eGFR For Non-African Americans > 60 (> 60)
[2017-07-16 13:21] LABS: Anisocytosis 2+ (Not Present); Microcytosis Present (Not Present); Platelet Estimate Normal (Normal)
[2017-07-16] MEDS ORDERED: cefTRIAXone 1,000 MG in Water for inj. (sterile) 20 ML 10 ML IVP ONE (13:45)
[2017-07-16] MEDS ORDERED: *HR* Promethazine 25 MG/ML VIAL IVP PRN (14:12)
[2017-07-16] MEDS ORDERED: *HR* OxyCODONE Immed Rel 5 MG TABLET PO PRN (14:12)
[2017-07-16] MEDS ORDERED: Ketorolac 15 MG/ML VIAL IVP PRN (14:12)
[2017-07-16] MEDS ORDERED: Naloxone 0.4 MG/ML INJ IVP PRN (14:12)
[2017-07-16] MEDS: 0.9 % Sodium Chloride 1,000 ML IVC SCH (16:00)
[2017-07-16] MEDS: *HR* HYDROcodone/Acet 5/325 mg TABLET PO PRN (16:01)
[2017-07-16] MEDS: Ondansetron 4 MG/2 ML VIAL IVP PRN (16:02)
[2017-07-16] MEDS: Nicotine 21 MG PATCH.TD24 TD SCH (19:47)
--- NOTE | 2017-07-16 20:27 | Urology History & Physical ---
Date of Encounter: 07/16/17 Time of Encounter: 20:25 Assessment and Plan (1) Ureteral calculus, left Current Visit: Yes Status: Acute I reviewed the CT scan and it appears the patient has bilateral 3 mm mid/distal ureteral stones minimal hydronephosis. patient has likely UTI - common for the patient, and acute pain. we discussed trial of passage but agree it is best to proceed with surgical intervention. will attempt in situ stone extraction. could increase risk of infection with UTI but stent placement would also manipulate system and would not lower this risk considerably (2) Ureteral calculus, right Current Visit: Yes Status: Acute History of Present Illness Chief complaint: flank pain HPI: Ms. Caballero is a 32 year old female presents to ER with worsening flank pain ( right). no fever. nausea. states pain unrelenting and went to ER. ct scan with B mid/distal 3 mm ureteral stones. large stone burden in both kidneys. Past Med Surg Social Fam HX - Past Medical History Medical history: kidney stones Psychiatric history: anxiety, depression - Past Surgical History Surgical History: , cholecystectomy, ureteral stent, other - Social History Smoking Status: Current every day smoker Smokeless Tobacco Status: No Alcohol use: rarely Drug use: none - Family History Father Twin of Family Member: Yes, Fraternal Living Status: Still Living Hx Family Cardiac Disorders: Yes (Hypertension) Hx Family GI Disorders: No Hx Family Endocrine Disorder: Yes (Thyroid disorder; diabetes) Hx Family Neuromuscular Disorders: No Hx Family Neurologic Disorders: No Hx Family HEENT Disorders: No Hx Family Autoimmune Disorders: No Mother Living Status: Still Living Hx Family Cardiac Disorders: Yes (Hypertension) Hx Family Endocrine Disorder: Yes (Diabetes) Hx Family Neuromuscular Disorders: Yes (Multiple sclerosis) Medications and Allergies BuPROPion SR (12 HR) [Wellbutrin SR] 150 mg PO BID 12/29/16 [History] FLUoxetine HCl [Fluoxetine HCl] 40 mg PO DAILY 01/12/17 [History] Fluticasone Propionate Nasal [Flonase] 2 spray NS DAILY PRN 01/12/17 [History] Cetirizine HCl [Zyrtec] 10 mg PO DAILY PRN 04/22/17 [History] Metoprolol XL (24 HR) Succ [Toprol Xl] 25 mg PO DAILY 04/22/17 [History] Potassium Citrate/Citric Acid [Cytra-K Crystals Packet] 1 tab PO Q48H 11/09/17 [ History] 3 Allergy/AdvReac Type Severity Reaction Status Date / Time No Known Allergies Allergy Verified 01/29/17 10:30 Review of Systems - Constitutional fatigue, no fever(s) - EENT Nose, mouth and throat: no dizziness - Cardiovascular no chest pain - Respiratory no cough - Gastrointestinal abdominal pain, nausea - Genitourinary Genitourinary: flank pain - Musculoskeletal back pain - Integumentary no erythema - Neurological no confusion - Psychiatric no anxiety - Hematologic/Lymphatic no easy bleeding - Allergic/Immunologic no throat swelling Exam Initial Vital Signs Temp Pulse Resp BP Pulse Ox 98.8 F 76 18 152/95 97 07/16/17 09:41 07/16/17 09:41 07/16/17 09:41 07/16/17 09:41 07/16/17 09:41 - General physical appearance Present: well developed, no distress, no pain - Eyes Present: PERRL, conjunctiva is clear - ENT Present: normal nares, no congestion - Neck Present: no masses, no lymphadenopathy - Respiratory Present: normal respiratory effort - Cardiovascular Cardiovascular exam IM: RRR - Abdomen Abdomen: Present: soft, suprapubic tenderness. Absent: masses - Integumentary Present: no rash, no abnormal pigmentation - Neurologic Present: normal coordination. Absent: disoriented, confused Urology Results - Labs 07/16/17 12:35 07/16/17 12:35 Abnormal lab results WBC 13.7 K/mcL (4.3-11.1) H 07/16/17 12:35 RBC 5.12 M/mcL (3.82-4.97) H 07/16/17 12:35 MCV 76.8 fL (83.0-100.0) L 07/16/17 12:35 MCH 22.5 pg (28.0-33.3) L 07/16/17 12:35 MCHC 29.3 g/dL (31.6-35.5) L 07/16/17 12:35 RDW 21.7 % (11.5-14.5) H 07/16/17 12:35 Neutrophils # 12.0 K/mcL (1.6-8.9) H 07/16/17 12:35 Anisocytosis 2+ (Not Present) A 07/16/17 12:35 Microcytosis Present (Not Present) A 07/16/17 12:35 Chloride 109 mEq/L (98-107) H 07/16/17 12:35 Carbon Dioxide 22 mEq/L (23-29) L 07/16/17 12:35 Glucose 110 mg/dL (70-105) H 07/16/17 12:35 Urine Clarity Cloudy (Clear) A 07/16/17 11:57 Urine Blood Moderate (Negative) H 07/16/17 11:57 Urine Nitrite Positive (Negative) A 07/16/17 11:57 Ur Leukocyte Esterase Moderate (Negative) H 07/16/17 11:57 Urine Microscopic RBC 15-30 per hpf (0-3) H 07/16/17 11:57 Urine Microscopic WBC 50-100 per hpf (0-3) H 07/16/17 11:57 Ur Squamous Epith Cells Many per lpf (None-Few) H 07/16/17 11:57 Urine Bacteria Many per hpf (None-Few) H 07/16/17 11:57 All other labs normal.
[2017-07-17] MEDS: 0.9 % Sodium Chloride 1,000 ML IVC SCH (02:28)
[2017-07-17] MEDS: *HR* HYDROcodone/Acet 5/325 mg TABLET PO PRN (07:39)
[2017-07-17] MEDS: Ondansetron 4 MG/2 ML VIAL IVP PRN (07:39)
[2017-07-17] MEDS: Nicotine 21 MG PATCH.TD24 TD SCH (07:40)
--- NOTE | 2017-07-17 07:47 | Urology Progress Note ---
Date of Encounter: 07/17/17 Time of Encounter: 07:46 - Assessment and Plan (1) Ureteral calculus, left Current Visit: Yes Status: Acute Assessment and plan: proceed as planned with B stone extraction (2) Ureteral calculus, right Current Visit: Yes Status: Acute Progress Note Subjective: no new complaints Narrative: did not pass stone Objective Initial Vital Signs Temp Pulse Resp BP Pulse Ox 98.8 F 76 18 152/95 97 07/16/17 09:41 07/16/17 09:41 07/16/17 09:41 07/16/17 09:41 07/16/17 09:41 - General physical appearance Present: no distress - Labs 07/16/17 12:35 07/16/17 12:35 Consult Discharge Plan - Plan Referrals: Bethany May DO [Primary Care Provider] -
[2017-07-17] MEDS ORDERED: Albuterol 2.5 MG/3 ML NEBULIZER IH ONE (08:20)
[2017-07-17] MEDS ORDERED: Lidocaine -MPF 2% 2 ML VIAL ONE (08:36)
[2017-07-17] MEDS ORDERED: *HR* FentaNYL (PF) 100 MCG/2 ML VIAL ONE (08:36)
[2017-07-17] MEDS ORDERED: *HR* Propofol 200 MG/20 ML VIAL IVP ONE (08:37)
--- NOTE | 2017-07-17 08:53 | Operative Note ---
Date of procedure: 07/17/17 Pre-op diagnosis: Bilateral ureteral calculi Post-op diagnosis: same Procedure: Bilateral ureteroscopy Bilateral retrograde pyelogram Bilateral ureteral stent placement Anesthesia: GETA Surgeon: Bennie Salas Was there an dental assistant instructor present: No Estimated blood loss (cc): 0 Specimen: none Condition: stable Disposition: PACU Procedure in Detail: PROCEDURE IN DETAIL: Patient was taken back to the operating room, positioned supine on the operating table. Anesthesia was applied without complication. They were moved into dorsal lithotomy. Careful attention was maintained to cushion all pressure points for patient's safety. They were prepped and draped in sterile fashion. Time-out was performed with the proper patient and procedure. A 21-[place]ait[place] rigid cystoscope was inserted into the bladder without difficulty. Systematic examination of bladder revealed no abnormalities. The leftureteral orifice was cannulated using a 5-Haitian ureteral Catheter and a zip wire was placed through the 5-Haitian and confirmed in the renal pelvis with fluoroscopy. Semirigid ureteroscope was placed through the urethra, into the left ureter. I encountered the area of mucosal edema consistent with the location of the stone seen on CT scan. No stone was present. I suspected it washed back into the renal pelvis or proximal ureter. I obtained a flexible ureteroscope was able to guide this into the ureter and up to the renal pelvis. Patient had large volume of stone which was expected. Unable to identify the likely stone in the ureter and I did not proceed with aggressive removal of all renal stone because of the possible UTI. A 4.8 x 26 ureteral stent was placed over the zip wire under fluoroscopy without complication. I then proceeded with a semirigid ureteroscopy on the right side. I was able to guide the semirigid scope up to the level of the UPJ. No stone was present. I suspect she passed the right-sided stone. A 4.8 x 26 stent was also placed on the right side. Strings were left attached to each stent. Bladder was drained. hours
--- NOTE | 2017-07-17 08:56 | Discharge Summary ---
Date of Encounter: 07/17/17 Time of Encounter: 08:53 - Discharge Diagnosis (1) Ureteral calculus, left Priority: Primary Status: Resolved (2) Ureteral calculus, right Priority: Primary Status: Resolved - Discharge Medications Prescriptions: HYDROcodone/Acet 5/325 mg [[place] 5-325 mg] 1 tab PO Q4HR PRN 7 Days #15 tablet PRN Reason: Moderate pain Phenazopyridine HCl [Pyridium] 200 mg PO TIDAC PRN #20 tab PRN Reason: burning with urination Sulfamethoxazole/Trimeth DS [Bactrim DS] 1 each PO BID #20 tablet Home Medications: BuPROPion SR (12 HR) [Wellbutrin SR] 150 mg PO BID 12/29/16 [History] FLUoxetine HCl [Fluoxetine HCl] 40 mg PO DAILY 01/12/17 [History] Fluticasone Propionate Nasal [Flonase] 2 spray NS DAILY PRN 01/12/17 [History] Cetirizine HCl [Zyrtec] 10 mg PO DAILY PRN 04/22/17 [History] Metoprolol XL (24 HR) Succ [Toprol Xl] 25 mg PO DAILY 04/22/17 [History] Potassium Citrate/Citric Acid [Cytra-K Crystals Packet] 1 tab PO Q48H 04/22/17 [ History] HYDROcodone/Acet 5/325 mg [[place] 5-325 mg] 1 tab PO Q4HR PRN 7 Days #15 tablet 07/17/17 [Rx] Phenazopyridine HCl [Pyridium] 200 mg PO TIDAC PRN #20 tab 07/17/17 [Rx] Sulfamethoxazole/Trimeth DS [Bactrim DS] 1 each PO BID #20 tablet 07/17/17 [Rx] Allergies/Adverse Reactions: 3 Allergy/AdvReac Type Severity Reaction Status Date / Time No Known Allergies Allergy Verified 01/29/17 10:30 Date of admission: 07/16/17 13:57 Primary care physician: Bethany May DO Discharging clinician: Bennie Salas Anticipated date of discharge: 07/17/17 - Patient Status Disposition: Home, Self-Care Condition: Good Functional capacity at discharge: independent ambulation Overall status at discharge: patient is progressing back to baseline - Discharge Instructions Follow Up With: Bethany May DO [Primary Care Provider] - Bennie Salas MD [Partnered Physician] - (see instructions) Additional Instructions: Expect stent discomfort including urgency, frequency, burning on urination, blood in the urine. Okay to remove stents (both) at home in 3-4 days by pulling on the strings until the entire stent is out. If unable to remove the stents at home please come to the urology office Wednesday or Wednesday. Otherwise no need for follow-up unless having issues. Please complete all antibiotics. Call if fever over 101 or other significant symptoms - Diet and Activity Activity: other Diet: advance to your usual diet - Hospital Course Hospital course: Ms. Caballero is a 32 year old female s/p surgical managment of B ureteral stones. plan to discharge after procedure as long as vital signs are stable and no fever. Time spent discussing smoking cessation with patient: 3 to 10 minutes - Time Spent with Patient Total time spent providing and/or coordinating discharge services: Less than 30 minutes Exam Initial Vital Signs Temp Pulse Resp BP Pulse Ox 98.8 F 76 18 152/95 97 07/16/17 09:41 07/16/17 09:41 07/16/17 09:41 07/16/17 09:41 07/16/17 09:41 - General physical appearance Present: well developed, no distress
--- NOTE | 2017-07-17 08:57 | Anesthesia Evaluation PreOp ---
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 Hx of Medullary sponge kidney dx 2012. RTA (renal tubular acidosis) dx 2010) Anesthesia History: No Prior Anesthetic Complications, Past Anesthesia (R-renal stone extraction 01/2017. Multiple kidney stone procedures.) : No Test: Negative Alcohol Use: rarely Drug use: none Medications and Allergies BuPROPion SR (12 HR) [Wellbutrin SR] 150 mg PO BID 12/29/16 [History] FLUoxetine HCl [Fluoxetine HCl] 40 mg PO DAILY 01/12/17 [History] Fluticasone Propionate Nasal [Flonase] 2 spray NS DAILY PRN 01/12/17 [History] Cetirizine HCl [Zyrtec] 10 mg PO DAILY PRN 04/22/17 [History] Metoprolol XL (24 HR) Succ [Toprol Xl] 25 mg PO DAILY 04/22/17 [History] Potassium Citrate/Citric Acid [Cytra-K Crystals Packet] 1 tab PO Q48H 04/22/17 [ History] HYDROcodone/Acet 5/325 mg [[place] 5-325 mg] 1 tab PO Q4HR PRN 7 Days #15 tablet 07/17/17 [Rx] Phenazopyridine HCl [Pyridium] 200 mg PO TIDAC PRN #20 tab 07/17/17 [Rx] Sulfamethoxazole/Trimeth DS [Bactrim DS] 1 each PO BID #20 tablet 07/17/17 [Rx] 3 Allergy/AdvReac Type Severity Reaction Status Date / Time No Known Allergies Allergy Verified 01/29/17 10:30 - Meds/Allergy Pre-op Review Medications Reviewed: Yes Allergies Reviewed: Yes Beta Blockers on Current Med List: Yes (Labetaol) If Beta Blockers taken, Date/Time (Last Dose taken): Not on inpatient med list Anesthesia Results - Labs 07/16/17 12:35 07/16/17 12:35 Laboratory Results Laboratory Tests 09/26/16 07/16/17 07/16/17 14:23 10:20 12:35 Creatinine 1.05 Est GFR (Non-Af Amer) > 60 Urine Test Negative Urine Opiates Screen Positive H U Marijuana (THC) Screen Positive H Impressions Abdomen/Pelvis CT 07/16/17 09:51 IMPRESSION: 1. No significant change left hydroureteronephrosis secondary to a 3 mm distal ureteral calculus. 2. Bilateral medullary nephrocalcinosis. 3. Septated left ovarian cyst, likely physiologic. D/ / Bill Patel MD / Bill Patel MD Interpreting Provider: Bill Patel MD Anesthesia Exam Vital Signs Temp Pulse Resp BP Pulse Ox 07/17/17 08:24 16 115/87 97 07/17/17 04:02 98.2 F 81 18 108/63 99 07/16/17 15:03 98.0 F 100 16 141/84 95 07/16/17 14:12 98.4 F 18 140/90 07/16/17 09:41 98.8 F 76 18 152/95 97 Intake and Output 07/16/17 07/17/17 07/17/17 23:59 07:59 15:59 Intake Total 1000 / 1000 Output Total 2400 / 2400 Balance -1400 / -1400 Intake: IV Fluids 1000 / 1000 0.9 % Sodium Chloride 1,000 ML 1000 / 1000 @ 100 mls/hr IVC .Q10H TAWANDA Rx#: [id number] Oral 0 / 0 Output: Urine 2400 / 2400 Height: 5'5" Weight: 263# BMI = 44 NPO (# of Hours): MNOc - HEENT Pupil (Motor): Pupils equal, EOMI Mallampati: III Teeth: Normal Oral Opening: Greater than 3 - TANK TENDER LOC: Oriented TANK TENDER Motor: Normal RUE, Normal LUE, Normal RLE, Normal LLE, Normal Face TANK TENDER Sensory: Normal: RUE, LUE, RLE, LLE, Face - Cardiac Rhythm: Regular Murmur: None - Pulmonary Breath Sounds: bilateral Clear Respiratory Effort: Symmetrical Anesthesia Assess/Plan ASA Score: 3 (Smoker, Anxiety/Depression, MO/BMI = 44) Modified Vaishali Scale for Level of Consciousness: Cooperative, oriented, and tranquil Anesthetic Plan: General Monitoring Plan: Standard Monitors Recovery Plan: PACU Anes Supervising Prov Stmt: Pt seen/evalutated, R&B Discussed,questions answered and consent obtained. Kanu Gomez MD
[2017-07-17] MEDS ORDERED: cefTRIAXone 1,000 MG in Water for inj. (sterile) 20 ML 10 ML IVP SCH (09:00)
[2017-07-17] MEDS ORDERED: Acetaminophen IV 1,000 MG/100 ML INFUS..BTL ONE (09:08)
[2017-07-17] MEDS ORDERED: Metoclopramide 10 MG/2 ML VIAL ONE (09:08)
[2017-07-17] MEDS ORDERED: Famotidine 20 MG/2 ML VIAL ONE (09:08)
[2017-07-17] MEDS ORDERED: Isovue-300 50 ML VIAL IVP ONE (09:14)
[2017-07-17] MEDS ORDERED: *HR* OxyCODONE Immed Rel 5 MG TABLET PO PRN ×2 (09:48→11:28)
[2017-07-17] MEDS ORDERED: MORPHINE SUL Oral CONC 10 MG/0.5 ML ORAL.SYG SL PRN (09:48)
[2017-07-17] MEDS ORDERED: *HR* Labetalol 20 MG/4 ML SYRINGE IVP PRN (09:48)
[2017-07-17] MEDS ORDERED: *HR* HYDROcodone/Acet 7.5/325 mg TABLET PO PRN (09:48)
[2017-07-17] MEDS ORDERED: Dexamethasone 4 MG/ML VIAL ONE (09:51)
[2017-07-17] MEDS ORDERED: Ondansetron 4 MG/2 ML VIAL IVP PRN (09:53)
[2017-07-17] MEDS ORDERED: *HR* Magnesium Sulfate 1 GM/2 ML VIAL ONE (10:06)
[2017-07-17] MEDS ORDERED: *HR* HYDROcodone/Acet 5/325 mg TABLET PO PRN (11:28)
[2017-07-17] MEDS ORDERED: BuPROPion SR (12 HR) 150 MG TABLET PO SCH (11:28)
[2017-07-17] MEDS ORDERED: FLUoxetine 20 MG CAPSULE PO SCH (11:28)
[2017-07-17] MEDS ORDERED: CITRIC ACID PO SCH (11:28)
[2017-07-17] MEDS ORDERED: Naloxone 0.4 MG/ML INJ IVP PRN (11:28)
[2017-07-17] MEDS ORDERED: Fluticasone Propionate Nasal 50 MCG/SPRAY BOTTLE NS PRN (11:28)
[2017-07-17] MEDS ORDERED: *HR* Promethazine 25 MG/ML VIAL IVP PRN (11:28)
[2017-07-17] MEDS ORDERED: Metoprolol XL (24 HR) Succ 25 MG TAB.ER.24H PO SCH (11:28)
[2017-07-17] MEDS ORDERED: Loratadine 10 MG TABLET PO PRN (11:28)
[2017-07-17] MEDS ORDERED: POTASSIUM CITRATE PO SCH (11:28)
[2017-07-17] MEDS ORDERED: 0.9 % Sodium Chloride 1,000 ML IVC SCH (11:28)
--- NOTE | 2017-07-17 11:55 | Anesthesia Evaluation Post Op ---
Date of Encounter: 07/17/17 Time of Encounter: 11:10 - Vital Signs Vital Signs: Vital Signs/O2 Sat/Glucose, Most Current Temp Pulse Resp BP Pulse Ox 07/17/17 10:52 90 18 124/79 98 07/17/17 10:42 97.9 F 95 18 112/74 97 07/17/17 10:32 92 18 105/57 95 07/17/17 10:22 93 18 115/63 94 07/17/17 10:17 94 20 109/65 96 07/17/17 10:12 97.9 F 99 20 118/69 95 07/17/17 08:24 16 115/87 97 - Lungs Lungs: Clear Ascult./Percussion - Airway Airway: Non-obstructed - Cardiovascular Regular Rate - Mental Status Mental Status: Alert & Oriented, Answers Appropriately - Pain Pain Scale: 1 Pain Scale used: Numeric (1 - 10), WebberPatricia (Faces) - Nausea Vomiting Nausea Vomiting: Responds to treatment with IV Meds - Hydration Hydration: Tolerates oral liquids, Has not voided - Discharge PostOp Status: Transfer Patient to floor Anes Supervising Prov Stmt: Pt seen/evaluated, VSS and pt has met criteria for discharge to floor. - MD Jason
[2017-07-17 12:21] VITALS: BP 118/72
[2017-07-18] MEDS ORDERED: Nicotine 21 MG PATCH.TD24 TD SCH (09:00)
[2017-07-18] MEDS ORDERED: cefTRIAXone 1,000 MG in Water for inj. (sterile) 20 ML 10 ML IVP SCH (09:00)
== END 2017-07-17 12:17 | disposition home or self-care (01) ==
LOC: 3ANU 09:39 → EMEROO 09:39 → 3ANU 14:32
PROVIDERS: ADMIT Urology; ATTEND Urology

== ENCOUNTER 2019-02-15 06:50 | Inpatient (IN) ==
[2019-02-15] MEDS ORDERED: Albuterol 2.5 MG/3 ML NEBULIZER IH ONE (07:24)
[2019-02-15] MEDS ORDERED: cefOXitin 2,000 MG in Water for inj. (sterile) 20 ML IVP ONE (07:24)
[2019-02-15] MEDS ORDERED: Ringers Solution, Lactated 1,000 ML IVC SCH (07:30)
--- NOTE | 2019-02-15 07:32 | History & Physical Report ---
Date of Encounter: 02/15/19 Time of Encounter: 07:31 24 Hour HP Update - Instructions Instructions: If the History and Physical is less than 30 days old and was completed prior to A.M. admission and or procedure and has NOT been updated on calendar day of procedure please complete this update prior to performing procedure. - Update Patient reports changes in Medical Condition: No Changes in examination, assessment, or condition: No Changes in Medication: No Preop tests/diagnostics Reviewed: Yes Pre-Op MRSA Screen: Negative Surgery Remains Indicated: Yes Consent for Planned Operative Procedure(s) Verified: Yes - Pre-Operative Checklist Preoperative Checklist Indicated: Yes Prophylactic Antibiotic Ordered: Yes Home Medications Include Beta Brant: Yes Beta Brant Taken Today (Day of Surgery): Yes Beta Brant Taken Yesterday (Day Prior to Surgery): Yes Is VTE Prophylaxis Indicated?: Yes
[2019-02-15] MEDS ORDERED: Famotidine 20 MG/2 ML VIAL IVP ONE (07:42)
[2019-02-15] MEDS ORDERED: Pregabalin 75 MG CAPSULE PO ONE (07:43)
[2019-02-15] MEDS ORDERED: Acetaminophen IV 1,000 MG/100 ML INFUS..BTL IVPB ONE (07:43)
[2019-02-15] MEDS ORDERED: *HR* Promethazine 25 MG/ML VIAL IVP PRN (07:45)
[2019-02-15] MEDS ORDERED: *HR* Labetalol 20 MG/4 ML SYRINGE IVP PRN (07:45)
[2019-02-15] MEDS ORDERED: *HR* HYDROmorphone 2 MG TABLET PO PRN (07:45)
[2019-02-15] MEDS ORDERED: *HR* OxyCODONE Immed Rel 5 MG TABLET PO PRN (07:45)
--- NOTE | 2019-02-15 07:51 | Anesthesia Evaluation PreOp ---
Date of Encounter: 02/15/19 Time of Encounter: 07:36 - Past History Planned Operation: MIRA/BSO Cardiac History: HTN, Arrhythmia (SVT s/p failed ablation. 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 Hx Kidney Failure s/p Toradol 09/2018. Kidney stones. Pt actively uncomfortable during questioning - Pt states is passing a kidney stone and produced the passed stone at conclusion of interview today.), GERD, Other (PCOS.) Anesthesia History: No Prior Anesthetic Complications, Past Anesthesia ([place], [place], Multiple kidney stents, Nephrostomy tube. R) Alcohol Use: occasionally Drug use: marijuana Medications and Allergies Metoprolol Succinate [Toprol Xl] 25 mg PO HS 02/15/19 [History] Metoprolol Succinate [Toprol Xl] 50 mg PO QAM 02/15/19 [History] Omeprazole 20 mg PO BID 02/15/19 [History] buPROPion HCl [Bupropion HCl Sr] 200 mg PO BID 02/15/19 [History] Allergy/AdvReac Type Severity Reaction Status Date / Time ketorolac [From Toradol] Allergy See Verified 02/15/19 07:46 Comments NSAIDS (Non-Steroidal AdvReac See Verified 02/15/19 07:43 Anti-Inflamma Comments - Meds/Allergy Pre-op Review Medications Reviewed: Yes Allergies Reviewed: Yes Beta Blockers on Current Med List: Yes (Metoprolol) If Beta Blockers taken, Date/Time (Last Dose taken): 02/14/2019 @ 1000 Anesthesia Results - Labs Laboratory Tests 02/10/19 02/10/19 02/10/19 09:52 09:52 09:52 WBC 6.9 Hgb 13.4 Hct 42.3 Plt Count 256 Est GFR ( Amer) > 60 Serum , Qual Negative - Imaging EKG: report reviewed (100bpm - SINUS TACHYCARDIA ABNORMAL RHYTHM ECG Electronically Signed On 02-21-2018 8:52:31 EDT by Enrique Carlisle) Anesthesia Exam O2 Sat Height 1.7 m Height 1.7 m Weight 116.12 kg Weight 116.12 kg O2 Sat by Pulse Oximetry 98 O2 Sat by Pulse Oximetry 98 Vital Signs Temp Pulse Resp BP Pulse Ox 98.3 F 84 18 131/88 98 02/15/19 07:24 02/15/19 07:24 02/15/19 07:24 02/15/19 07:24 02/15/19 07:24 Height: 5'7" Weight: 256# BMI = 40 NPO (# of Hours): MNoc - HEENT Pupil (Motor): Pupils equal, EOMI Mallampati: III Teeth: Normal Oral Opening: Greater than 3 - [employer] LOC: Oriented [employer] Motor: Normal RUE, Normal LUE, Normal RLE, Normal LLE, Normal Face [employer] Sensory: Normal: RUE, LUE, RLE, LLE, Face - Cardiac Rhythm: Regular Murmur: None - Pulmonary Breath Sounds: bilateral Clear Respiratory Effort: Symmetrical Anesthesia Assess/Plan ASA Score: 3 (MO/BMI = 40, Smoker, PCOS, Stage 3 CKDz) Level of consciousness: Cooperative, Oriented, Tranquil Anesthetic Plan: General Monitoring Plan: Standard Monitors Recovery Plan: PACU Anes Supervising Prov Stmt: Pt seen/evaluated, R&B Discussed,questions answered and consent obtained. Kanu Gomez MD
[2019-02-15] MEDS ORDERED: *HR* LORazepam 1 MG TABLET PO PRN (08:06)
[2019-02-15] MEDS ORDERED: Lidocaine -MPF 2% 2 ML VIAL ONE (08:08)
[2019-02-15] MEDS ORDERED: *HR* Midazolam HCl 2 MG/2 ML VIAL ONE (08:08)
[2019-02-15] MEDS ORDERED: *HR* Rocuronium Bromide 50 MG/5 ML VIAL ONE (08:08)
[2019-02-15] MEDS ORDERED: *HR* FentaNYL (PF) 100 MCG/2 ML VIAL ONE (08:08)
[2019-02-15] MEDS ORDERED: *HR* Succinylcholine 200 MG/10 ML VIAL IVP ONE (08:08)
[2019-02-15] MEDS ORDERED: Ondansetron 4 MG/2 ML VIAL ONE (08:08)
[2019-02-15] MEDS ORDERED: Dexamethasone 4 MG/ML VIAL ONE (08:08)
[2019-02-15] MEDS ORDERED: *HR* Propofol 200 MG/20 ML VIAL IVP ONE (08:09)
[2019-02-15] MEDS ORDERED: *HR* HYDROMORPHONE 2 MG/ML VIAL ONE (09:44)
[2019-02-15] MEDS ORDERED: Neostigmine Methylsulfate 3 MG/3 ML SYRINGE ONE (10:28)
--- NOTE | 2019-02-15 10:52 | OB/GYN Procedure Note ---
Hysterectomy - Diagnosis Date of procedure: 02/15/19 Hysterectomy pre-op: abnormal uterine bleeding, menorrhagia Post-op diagnosis: same - Procedure Hysterectomy procedure: total abdominal hysterectomy, bilateral salpingectomy Surgeon: Vanesa Russell Was there an phlebotomist lab assistant present: Yes Room Service Waiter/Waitress: Chelle Jackson Anesthesia Type: General Estimated blood loss (cc): 400 Complications: none Fluids: crystalloid Specimens: uterus, cervix, right fallopian tube, left fallopian tube Disposition: PACU Narrative: Prep diagnosis: Dysmenorrhea and menorrhagia pelvic pain refractory to conservative medical management Postoperative diagnosis: Same Surgeon: Drew Room Service Waiter/Waitress: Manuel Anesthesia: Gen. Blood loss: 400 mL Specimen: Uterus bilateral fallopian tubes History Flor is a 33-year-old multiparous female. She is long history of dysmenorrhea and menorrhagia and dysfunctional bleeding. She we attempted conservative medical management, intrauterine device, endometrial ablation again she continued to have irregular bleeding. Biopsies were all benign and she opted to proceed with surgical intervention. Ovaries were noted to be within normal limits. Respect the indications were all discussed and consent was obtained. Procedure: There is taken to the operative suite and after adequate anesthesia was assured she is prepped and draped in the usual sterile fashion a Pfan nenstiel incision was created and taken down through the subcutaneous fat and fascia to rectus muscles rectus muscles were divided in the midline. She was noted to have some dense bladder and omental and abdominal. Abdominal wall adhesions.These were gently resected with blunt and sharp dissection without any consequence to the bilateral or bladder. The peritoneum had been entered without consequence to the bowel or bladder. The pelvis was systematically inspected. The uterus was noted to be mildly enlarged and boggy. She had latter adhesions to the lower uterine segment and to bilateral adnexa. She had some fallopian tube and bladder adhesions. These adhesions were gently dissected without consequence to the bladder. The round ligaments were both identified. The bowel was then packed away with moist laparotomy sponges and retractors replaced within the abdominal incision. The uterus was elevated with Shari clamps. Bilateral round ligaments were isolated clamped transected and suture ligated. The utero-ovarian pedicles were isolated. Both fallopian tubes were gently dissected off the underlying ligament and ovary. The utero-ovarian pedicle including the fallopian tubes were clamped bilaterally. There clamped transected and suture ligated. Attention was then turned toward the bladder. The bladder was made certain to be separate from her surgical site. Uterine arteries were skeletonized. The uterine arteries were clamped transected and suture ligated. In a series of steps the remainder of the uterosacral brought ligaments were clamped transected and suture ligated. Curved grasper placed beneath the uterus. It was clamped transected and suture ligated. Another set of curved clamps were then placed beneath the uterine cervix. They met in the midline. The uterus was amputated. The vaginal cuff had been closed in an interrupted fashion. The bilateral uterosacral ligaments were attached to the vaginal cuff during the procedure. Copious irrigation was then performed. The surgical sites were all inspected. Hemostasis was assured. Adhesion material was placed in the bladder flap. Lara Calabrese then removed the abdominal cavity. Again copious irrigation surgical sites had been inspected and hemostasis was assured. When sponge lap and needle and instrument counts were correct and the fascia was closed with 2 length of PDS. The subcutaneous tissue was reapproximated with interrupted sutures. The skin was closed with declan. We had no intraoperative complications. The patient tolerated the procedure very well. She was awakened and taken to the postanesthesia care unit in stable condition.
[2019-02-15] MEDS: *HR* HYDROmorphone (PF) 1 MG/ML SYRINGE IVP PRN ×4 (11:21→12:02)
--- NOTE | 2019-02-15 12:30 | Anesthesia Evaluation Post Op ---
Date of Encounter: 02/15/19 Time of Encounter: 12:00 - Vital Signs Vital Signs: Selected Entries 02/15/19 12:02 Temperature 99.0 F Pulse Rate 69 Respiratory Rate 18 Blood Pressure 145/85 O2 Sat by Pulse Oximetry 93 - Lungs Lungs: Clear Ascult./Percussion - Airway Airway: Non-obstructed - Cardiovascular Regular Rate - Mental Status Mental Status: Alert & Oriented, Answers Appropriately - Nausea Vomiting Nausea Vomiting: Not Present - Hydration Hydration: NPO - Discharge PostOp Status: Transfer Patient to floor
[2019-02-15] MEDS ORDERED: Ibuprofen 400 MG TABLET PO PRN (12:32)
[2019-02-15] MEDS ORDERED: Naloxone 0.4 MG/ML INJ IVP PRN (12:32)
[2019-02-15] MEDS ORDERED: Sennosides 8.6 MG TABLET PO PRN (12:32)
[2019-02-15] MEDS ORDERED: Ondansetron 4 MG/2 ML VIAL IVP PRN (12:32)
[2019-02-15] MEDS: *HR* HYDROcodone/Acet 5/325 mg TABLET PO PRN ×3 (12:50→21:15)
[2019-02-15] MEDS: Ringers Solution, Lactated 1,000 ML IVC SCH (14:03)
[2019-02-15] MEDS: cefOXitin 1,000 MG in 0.9 % Sodium Chloride Mini Bag 100 ML IVPB SCH (16:29)
[2019-02-15] MEDS: *HR* OxyCODONE Immed Rel 5 MG TABLET PO PRN (18:06)
[2019-02-15] MEDS: BuPROPion SR (12 HR) 100 MG TABLET PO SCH (21:14)
[2019-02-16] MEDS: Ringers Solution, Lactated 1,000 ML IVC SCH (00:35)
[2019-02-16] MEDS: cefOXitin 1,000 MG in 0.9 % Sodium Chloride Mini Bag 100 ML IVPB SCH ×2 (00:36→08:18)
[2019-02-16] MEDS: *HR* OxyCODONE Immed Rel 5 MG TABLET PO PRN ×2 (00:44→09:17)
[2019-02-16] MEDS: *HR* HYDROcodone/Acet 5/325 mg TABLET PO PRN ×2 (03:40→08:17)
[2019-02-16 06:53] LABS: Basophils % 0.3 %; Eosinophils % 0.2 %; Hematocrit 33.1 % (35.3-44.9); Immature Granulocytes % 0.5 % (0-4); Lymphocytes # 1.6 K/mcL (0.6-4.6); Lymphocytes % 15.1 %; Mean Corpuscular HGB Conc 30.8 g/dL (31.6-35.5); Mean Corpuscular Hemoglobin 26.8 pg (28.0-33.3); Mean Corpuscular Volume 87.1 fL (83.0-100.0); Mean Platelet Volume 10.8 fL (9.4-12.4); Monocytes % 9.1 %; Platelet Count 216 K/mcL (140-400); Red Cell Distribution Width 18.1 % (11.5-14.5); Segmented Neutrophils % 74.8 %; White Blood Count 10.7 K/mcL (4.3-11.1)
[2019-02-16 06:54] LABS: Hemoglobin 10.2 g/dL (11.5-15.4)
[2019-02-16] MEDS: BuPROPion SR (12 HR) 100 MG TABLET PO SCH (08:17)
--- NOTE | 2019-02-16 09:03 | Discharge Summary ---
Date of Encounter: 02/16/19 Time of Encounter: 09:05 - Discharge Diagnosis (1) Post-op pain Priority: Primary Status: Acute Comments: patient did is with her today. We reviewed her instructions with him as well. well overnight. void without difficulty. Ambulating without difficulty. Tolerating liquids well. Supportive home environment.. Incision is intact. At this time if she is ambulating well and continues to do well today she will be discharged. Instructions were reviewed. She will follow up in office in 1 week. - Discharge Medications Prescriptions: New Cephalexin [Keflex] 500 mg PO BID 7 Days #14 capsule HYDROcodone/Acet 5/325 mg [[place] 5-325 mg] 1 tab PO Q4H PRN 6 Days #15 tab PRN Reason: Pain No Action Metoprolol Succinate [Toprol Xl] 25 mg PO HS Omeprazole 20 mg PO BID buPROPion HCl [Bupropion HCl Sr] 200 mg PO BID Metoprolol Succinate [Toprol Xl] 50 mg PO QAM Home Medications: Cephalexin [Keflex] 500 mg PO BID 7 Days #14 capsule 02/15/19 [Rx] HYDROcodone/Acet 5/325 mg [[place] 5-325 mg] 1 tab PO Q4H PRN 6 Days #15 tab 02/15/19 [Rx] Metoprolol Succinate [Toprol Xl] 25 mg PO HS 02/15/19 [History] Metoprolol Succinate [Toprol Xl] 50 mg PO QAM 02/15/19 [History] Omeprazole 20 mg PO BID 02/15/19 [History] buPROPion HCl [Bupropion HCl Sr] 200 mg PO BID 02/15/19 [History] Allergies/Adverse Reactions: Allergy/AdvReac Type Severity Reaction Status Date / Time ketorolac [From Toradol] Allergy See Verified 02/15/19 07:46 Comments NSAIDS (Non-Steroidal AdvReac See Verified 02/15/19 07:43 Anti-Inflamma Comments Data Procedures and tests throughout hospitalization: Laboratory Tests 02/16/19 06:19 WBC 10.7 D RBC 3.80 L Hgb 10.2 L D Hct 33.1 L MCV 87.1 MCH 26.8 L MCHC 30.8 L RDW 18.1 H Plt Count 216 MPV 10.8 Immature Gran % 0.5 Seg Neutrophils % 74.8 Lymphocytes % 15.1 Monocytes % 9.1 Eosinophils % 0.2 Basophils % 0.3 Neutrophils # 8.0 Lymphocytes # 1.6 Monocytes # 1.0 Eosinophils # 0.0 Basophils # 0.0 Labs on day of discharge: Labs from last 24 hours 02/16/19 06:19 WBC 10.7 D RBC 3.80 L Hgb 10.2 L D Hct 33.1 L MCV 87.1 MCH 26.8 L MCHC 30.8 L RDW 18.1 H Plt Count 216 MPV 10.8 Immature Gran % 0.5 Seg Neutrophils % 74.8 Lymphocytes % 15.1 Monocytes % 9.1 Eosinophils % 0.2 Basophils % 0.3 Neutrophils # 8.0 Lymphocytes # 1.6 Monocytes # 1.0 Eosinophils # 0.0 Basophils # 0.0 Date of admission: 02/15/19 12:30 Primary care physician: PCP JANEY Discharging clinician: Vanesa Russell Anticipated date of discharge: 02/16/19 - Patient Status Disposition: Home, Self-Care Condition: Good Functional capacity at discharge: independent ambulation Overall status at discharge: patient is progressing back to baseline - Discharge Instructions Follow Up With: JANEY,PCP [Primary Care Provider] - Vanesa Russell MD [Partnered Physician] - - Diet and Activity Activity: other (no lifting, no driving, no sex) Diet: advance to your usual diet 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) Post op complications: None Discharge diagnosis: other (Postoperative) Hospital course: Uncomplicated Time spent discussing smoking cessation with patient: more than 10 minutes (Follow-up in office 1 week.) Time Attestation: Total time spent providing and/or coordinating discharge services: Exam - Constitutional Vitals: Temp Pulse Resp BP Pulse Ox 97.8 F 78 14 132/90 96 02/16/19 03:00 02/16/19 03:00 02/16/19 03:00 02/16/19 03:00 02/16/19 03:00 General appearance IM: cooperative, A&O X 3, no acute distress, answers questions appropriately - Respiratory Respiratory exam: Present: CTAB - Cardiovascular Cardiovascular exam IM: Present: RRR - GI/Abdominal GI/Abdominal exam IM: normal bowel sounds, soft Incision: dry, intact - Extremities Exam Extremities exam IM: Present: full ROM, normal inspection - Neurological Exam Neurological exam: oriented X3 - VTE Reasons for not Prescribing Prophylaxis: Treatment not Indicated - Low risk for VTE Documentation of Mechanical Device: Intermittent pneumatic compression device
[2019-02-16 09:08] VITALS: BP 138/83
== END 2019-02-16 11:13 | disposition home or self-care (01) | DRG 513 ==
LOC: SAMDAY 06:50 → 1NENUOBS 12:30
PROVIDERS: ADMIT Obstetrics & Gynecology; ATTEND Obstetrics & Gynecology

== ENCOUNTER 2019-06-15 03:12 | Observation (INO) ==
[2019-06-15] MEDS ORDERED: 0.9 % Sodium Chloride 1,000 ML IVC ONE (03:21)
[2019-06-15] MEDS ORDERED: *HR* HYDROmorphone (PF) 1 MG/ML SYRINGE IVP ONE ×2 (03:21→04:22)
[2019-06-15] MEDS ORDERED: Ondansetron 4 MG/2 ML VIAL IVP ONE (03:34)
[2019-06-15 03:56] LABS: Bilirubin,Urine Negative (Negative); Blood,Urine Moderate (Negative); Clarity,Urine Cloudy (Clear); Color,Urine Yellow (Yellow); Glucose,Urine (UA) Normal (Normal); Ketones,Urine Negative (Negative); Leukocyte Esterase,Urine Large (Negative); Nitrite,Urine Positive (Negative); Protein,Urine 30 mg/dL (Neg-Trace); Specific Gravity,Urine 1.017 (1.010-1.025); Urobilinogen,Urine Normal (Normal)
[2019-06-15 03:59] LABS: Bacteria,Urine Many per hpf (None-Few); Hyaline Casts,Urine Few per lpf (None-Few); Squamous Epithelial Cell,Urine Many per lpf (None-Few); WBC,Urine 50-100 per hpf (0-3)
[2019-06-15] MEDS ORDERED: cefTRIAXone 1,000 MG in Water for inj. (sterile) 10 ML IVP ONE (04:03)
[2019-06-15 04:20] LABS: White Blood Count 11.7 K/mcL (4.3-11.1)
[2019-06-15 04:21] LABS: Basophils # 0.1 K/mcL (0.0-0.2); Basophils % 0.6 %; Eosinophils # 0.2 K/mcL (0.0-0.6); Eosinophils % 1.5 %; Hematocrit 40.7 % (35.3-44.9); Hemoglobin 13.3 g/dL (11.5-15.4); Immature Granulocytes % 0.4 % (0-4); Lymphocytes # 4.1 K/mcL (0.6-4.6); Mean Corpuscular HGB Conc 32.7 g/dL (31.6-35.5); Mean Corpuscular Hemoglobin 26.9 pg (28.0-33.3); Mean Corpuscular Volume 82.2 fL (83.0-100.0); Mean Platelet Volume 10.6 fL (9.4-12.4); Monocytes # 0.9 K/mcL (0.0-1.3); Monocytes % 7.8 %; Neutrophils # 6.4 K/mcL (1.6-8.9); Platelet Count 303 K/mcL (140-400); Red Blood Count 4.95 M/mcL (3.82-4.97); Red Cell Distribution Width 19.2 % (11.5-14.5); Segmented Neutrophils % 54.7 %
[2019-06-15 04:47] LABS: Calcium 9.3 mg/dL (8.6-10.3); Potassium 3.4 mEq/L (3.5-5.1)
[2019-06-15] MEDS ORDERED: 0.9 % Sodium Chloride 1,000 ML IVC SCH ×2 (05:15→16:43)
[2019-06-15] MEDS ORDERED: Acetaminophen 325 MG TABLET PO PRN ×2 (05:49→16:43)
[2019-06-15] MEDS ORDERED: *HR* Promethazine 25 MG/ML VIAL IVP PRN ×2 (05:49→16:43)
[2019-06-15] MEDS ORDERED: Naloxone 0.4 MG/ML INJ IVP PRN ×2 (05:49→16:43)
[2019-06-15] MEDS: *HR* OxyCODONE Immed Rel 5 MG TABLET PO PRN ×2 (07:09→13:41)
[2019-06-15] MEDS ORDERED: Metoprolol XL (24 HR) Succ 25 MG TAB.ER.24H PO SCH ×2 (09:00→21:00)
[2019-06-15] MEDS ORDERED: Morphine Sulfate 2 MG/ML SYRINGE IVP PRN ×2 (11:49→16:43)
[2019-06-15] MEDS ORDERED: Nicotine 21 MG PATCH.TD24 TD SCH (12:00)
[2019-06-15] MEDS ORDERED: *HR* OxyCODONE Immed Rel 5 MG TABLET PO PRN (14:32)
[2019-06-15] MEDS ORDERED: *HR* HYDROmorphone (PF) 1 MG/ML SYRINGE IVP PRN (14:32)
[2019-06-15] MEDS ORDERED: Ondansetron 4 MG/2 ML VIAL ONE (14:42)
[2019-06-15] MEDS ORDERED: Dexamethasone 4 MG/ML VIAL ONE (14:42)
[2019-06-15] MEDS ORDERED: Lidocaine -MPF 2% 2 ML VIAL ONE ×2 (14:42→15:41)
[2019-06-15] MEDS ORDERED: *HR* Succinylcholine 200 MG/10 ML VIAL IVP ONE (14:42)
[2019-06-15] MEDS ORDERED: Lidocaine -MPF 4% 5 ML AMPUL ONE (14:42)
[2019-06-15] MEDS ORDERED: *HR* FentaNYL (PF) 100 MCG/2 ML VIAL ONE (14:43)
[2019-06-15] MEDS ORDERED: *HR* Propofol 200 MG/20 ML VIAL IVP ONE (14:43)
[2019-06-15] MEDS: Ondansetron 4 MG/2 ML VIAL IVP ONE ×2 (15:13→16:35)
[2019-06-15] MEDS ORDERED: *HR* PHENYLEPHRINE 1,000 MCG/10 ML SYRINGE IVP ONE (15:23)
[2019-06-15] MEDS ORDERED: Ipratropium/Albuterol Neb 3 ML ONE (15:59)
[2019-06-15] MEDS ORDERED: Hyoscyamine SL 0.125 MG TAB.SUBL SL PRN (16:43)
[2019-06-15] MEDS ORDERED: Psyllium 1 PACKET POWD.PACK PO PRN (16:44)
[2019-06-15] MEDS ORDERED: *HR* Heparin 5,000 UNIT/ML VIAL SQ SCH (18:00)
[2019-06-15] MEDS: *HR* Heparin 5,000 UNIT/ML VIAL SQ SCH (18:20)
[2019-06-15] MEDS ORDERED: *HR* LORazepam 2 MG/ML VIAL IVP ONE (19:43)
[2019-06-15] MEDS: Nicotine 21 MG PATCH.TD24 TD SCH (19:57)
[2019-06-15] MEDS: Metoprolol XL (24 HR) Succ 25 MG TAB.ER.24H PO SCH (21:28)
[2019-06-16] MEDS: *HR* OxyCODONE Immed Rel 5 MG TABLET PO PRN ×2 (00:07→20:33)
[2019-06-16 01:41] LABS: Hematocrit 35.8 % (35.3-44.9); Mean Corpuscular HGB Conc 31.8 g/dL (31.6-35.5); Mean Corpuscular Hemoglobin 26.3 pg (28.0-33.3); Mean Corpuscular Volume 82.7 fL (83.0-100.0); Mean Platelet Volume 11.3 fL (9.4-12.4); Platelet Count 213 K/mcL (140-400); Red Blood Count 4.33 M/mcL (3.82-4.97); Red Cell Distribution Width 19.2 % (11.5-14.5); White Blood Count 13.1 K/mcL (4.3-11.1)
[2019-06-16 01:56] LABS: BUN/Creatinine Ratio 13 (6-26); Blood Urea Nitrogen 15 mg/dL (6-20); Calcium 8.5 mg/dL (8.6-10.3); Carbon Dioxide 23 mEq/L (23-29); Chloride 110 mEq/L (98-107); Glucose 140 mg/dL (70-105); Osmolality,Calculated 287 (280-300); Potassium 4.1 mEq/L (3.5-5.1); Sodium 137 mEq/L (136-145); eGFR For African Americans > 60 (> 60); eGFR For Non-African Americans 53 (> 60)
[2019-06-16 02:00] LABS: Hemoglobin 11.4 g/dL (11.5-15.4)
[2019-06-16] MEDS: *HR* Heparin 5,000 UNIT/ML VIAL SQ SCH ×2 (05:10→16:39)
[2019-06-16] MEDS ORDERED: Nicotine 21 MG PATCH.TD24 TD SCH (09:00)
[2019-06-16] MEDS ORDERED: cefTRIAXone 1,000 MG in Water for inj. (sterile) 10 ML IVP SCH (09:00)
[2019-06-16] MEDS: Nicotine 21 MG PATCH.TD24 TD SCH (09:45)
[2019-06-16] MEDS: Metoprolol XL (24 HR) Succ 50 MG TAB.ER.24H PO SCH (09:46)
[2019-06-16] MEDS ORDERED: Fluconazole 100 MG TABLET PO ONE (14:37)
[2019-06-16] MEDS: Metoprolol XL (24 HR) Succ 25 MG TAB.ER.24H PO SCH (20:33)
[2019-06-17] MEDS ORDERED: *HR* LORazepam 1 MG TABLET PO ONE (00:26)
[2019-06-17] MEDS: *HR* Heparin 5,000 UNIT/ML VIAL SQ SCH (05:09)
[2019-06-17 06:50] VITALS: BP 136/78
[2019-06-17] MEDS: Metoprolol XL (24 HR) Succ 50 MG TAB.ER.24H PO SCH (08:47)
[2019-06-17] MEDS: Nicotine 21 MG PATCH.TD24 TD SCH (08:47)
== END 2019-06-17 10:50 | disposition home or self-care (01) ==
LOC: EMEROOARM 03:12 → 3NENU 03:12
PROVIDERS: ADMIT Internal Medicine; ATTEND Internal Medicine

== ENCOUNTER 2021-06-19 17:28 | Observation (INO) ==
[2021-06-19 20:22] LABS: Bacteria,Urine Few per hpf (None-Few); Bilirubin,Urine Negative (Negative); Blood,Urine Negative (Negative); Clarity,Urine Turbid (Clear); Color,Urine Light-Yellow (Yellow); Glucose,Urine (UA) Normal (Normal); Ketones,Urine Negative (Negative); Leukocyte Esterase,Urine Large (Negative); Mucus,Urine Few per lpf (None-Few); Nitrite,Urine Positive (Negative); PH,Urine 6.5 pH Units (5.0-8.0); Protein,Urine Trace mg/dL (Neg-Trace); Specific Gravity,Urine 1.016 (1.010-1.025); Squamous Epithelial Cell,Urine Few per hpf (None-Few); Urobilinogen,Urine Normal (Normal); WBC,Urine 50-100 per hpf (0-3)
[2021-06-19 20:35] LABS: Basophils % 0.3 %; Eosinophils % 0.5 %; Hematocrit 44.9 % (35.3-44.9); Hemoglobin 15.6 g/dL (11.5-15.4); Immature Granulocytes % 0.7 % (0-4); Lymphocytes # 2.5 K/mcL (0.6-4.6); Lymphocytes % 27.9 %; Mean Corpuscular HGB Conc 34.7 g/dL (31.6-35.5); Mean Corpuscular Hemoglobin 32.2 pg (28.0-33.3); Mean Corpuscular Volume 92.6 fL (83.0-100.0); Mean Platelet Volume 11.2 fL (9.4-12.4); Monocytes # 0.8 K/mcL (0.0-1.3); Monocytes % 8.6 %; Neutrophils # 5.5 K/mcL (1.6-8.9); Platelet Count 195 K/mcL (140-400); Red Blood Count 4.85 M/mcL (3.82-4.97); Red Cell Distribution Width 13.7 % (11.5-14.5); White Blood Count 8.9 K/mcL (4.3-11.1)
[2021-06-19 20:52] LABS: Alanine Aminotransferase 27 Units/L (7-52); Albumin 4.1 g/dL (3.5-5.7); Albumin/Globulin Ratio 1.6 (1.1-2.2); Alkaline Phosphatase 63 Units/L (34-104); Amylase 25 Units/L (29-103); Aspartate Amino Transferase 13 Units/L (13-39); BUN/Creatinine Ratio 10 (6-26); Bilirubin,Total 0.7 mg/dL (0.3-1.0); Blood Urea Nitrogen 11 mg/dL (6-20); Calcium 9.5 mg/dL (8.6-10.3); Carbon Dioxide 26 mEq/L (23-29); Chloride 105 mEq/L (98-107); Globulin 2.6 g/dL (2.4-3.5); Glucose 130 mg/dL (70-105); Lipase 38 Units/L (11-82); Osmolality,Calculated 287 (280-300); Potassium 2.9 mEq/L (3.5-5.1); Sodium 138 mEq/L (136-145); Total Protein 6.7 g/dL (6.4-8.9); eGFR For African Americans > 60 (> 60); eGFR For Non-African Americans 54 (> 60)
[2021-06-19] MEDS ORDERED: Isovue-370 500 ML BOTTLE IVP ONE (22:19)
[2021-06-19] MEDS ORDERED: Ondansetron 4 MG/2 ML VIAL IVP ONE (23:59)
[2021-06-19] MEDS ORDERED: *HR* FentaNYL (PF) 100 MCG/2 ML VIAL IVP ONE (23:59)
[2021-06-20] MEDS ORDERED: Ondansetron 4 MG/2 ML VIAL IVP ONE (01:18)
[2021-06-20] MEDS ORDERED: *HR* FentaNYL (PF) 100 MCG/2 ML VIAL IVP ONE (03:17)
[2021-06-20] MEDS ORDERED: cefTRIAXone 1,000 MG in Water for inj. (sterile) 10 ML IVP ONE (03:19)
[2021-06-20] MEDS ORDERED: Ringers Solution, Lactated 1,000 ML IVC SCH (09:30)
[2021-06-20] MEDS: *HR* OxyCODONE/APAP 5/325 TABLET PO PRN ×2 (09:37→16:47)
[2021-06-20] MEDS ORDERED: Ondansetron 4 MG/2 ML VIAL ONE ×2 (12:55→18:57)
[2021-06-20] MEDS ORDERED: Ondansetron 4 MG/2 ML VIAL IVP PRN ×2 (12:58→21:37)
[2021-06-20] MEDS ORDERED: Bupivacaine/EPI 1:200k 0.25% 50 ML VIAL ONE (18:30)
[2021-06-20] MEDS ORDERED: Lidocaine -MPF 2% 5 ML VIAL ONE (18:57)
[2021-06-20] MEDS ORDERED: *HR* FentaNYL (PF) 100 MCG/2 ML VIAL ONE (18:57)
[2021-06-20] MEDS ORDERED: *HR* Midazolam HCl 2 MG/2 ML VIAL ONE (18:57)
[2021-06-20] MEDS ORDERED: *HR* Rocuronium Bromide 50 MG/5 ML VIAL ONE (18:57)
[2021-06-20] MEDS ORDERED: *HR* Propofol 200 MG/20 ML VIAL IVP ONE ×2 (18:57)
[2021-06-20] MEDS ORDERED: *HR* Succinylcholine 200 MG/10 ML VIAL IVP ONE (18:58)
[2021-06-20] MEDS ORDERED: *HR* Magnesium Sulfate 1 GM/2 ML VIAL ONE (18:59)
[2021-06-20] MEDS ORDERED: Ketamine HCL *QUVA* 50mg (1mL) SYRINGE ONE (19:11)
[2021-06-20] MEDS ORDERED: *HR* FentaNYL (PF) 100 MCG/2 ML VIAL IVP PRN (21:37)
[2021-06-20] MEDS ORDERED: *HR* Meperidine 25 MG/ML SYRINGE IVP PRN (21:37)
[2021-06-20] MEDS ORDERED: Albuterol 2.5 MG/3 ML NEBULIZER IH PRN (21:37)
[2021-06-20] MEDS ORDERED: *HR* HYDROMORPHONE 2 MG/ML VIAL ONE (22:04)
[2021-06-20] MEDS ORDERED: Sugammadex Sodium 200 MG/2 ML VIAL IV ONE (22:38)
[2021-06-21] MEDS: *HR* OxyCODONE/APAP 5/325 TABLET PO PRN (01:05)
[2021-06-21 07:18] VITALS: BP 97/64; PULSE 101; TEMP 98.1; O2SAT 94
== END 2021-06-21 08:15 | disposition home or self-care (01) ==
LOC: EMEROOARM 17:28 → 1NENUOBS 17:28
PROVIDERS: ADMIT Obstetrics & Gynecology; ATTEND Obstetrics & Gynecology